=== PATIENT | female | born 1975 | race Caucasian/White ===

== ENCOUNTER 2017-06-30 12:24 | Emergency (ER) | payer MEDICARE, MEDICAID ==
[~2017-06-30] VITALS: Ht 170.2 cm; Wt 74.1 kg
[2017-06-30 12:25] VITALS: BP 123/81
[2017-06-30] MEDS ORDERED: NOVO1INJ4 SC (12:43)
[2017-06-30] MEDS ORDERED: AMIT100TA PO (12:43)
[2017-06-30] MEDS ORDERED: NEXI40CA PO (12:43)
[2017-06-30] MEDS ORDERED: INSULANT SC (12:43)
[2017-06-30] MEDS ORDERED: PLAV1TAB2 PO (12:43)
[2017-06-30] MEDS ORDERED: KLON1TAB PO (12:43)
[2017-06-30] MEDS ORDERED: TOPR50TA PO (12:43)
[2017-06-30] MEDS ORDERED: SITA50TAB PO (12:43)
[2017-06-30] MEDS ORDERED: METF10004 PO (12:43)
[2017-06-30] MEDS ORDERED: ATIV1TAB7 PO (12:43)
[2017-06-30] MEDS ORDERED: SOMA350T PO (12:43)
[2017-06-30] MEDS ORDERED: LIPI20TA PO (12:52)
[2017-06-30 13:47] LABS: BASO # 0.1 K/mm3 (0.0-0.2); BASO % 1.2 % (0.0-1.0); EOS # 0.1 K/mm3 (0.0-0.50); EOS % 1.1 % (0.0-3.0); LARGE UNSTAINED CELL # 0.2 K/mm3 (0.0-0.4); LYMPH # 3.9 K/mm3 (1.5-4.5); LYMPH % 34.1 % (24.0-44.0); MEAN CORPUSCULAR HEMOGLOBIN 33.7 pg (27.0-33.0); MEAN CORPUSCULAR HGB CONC 36.3 g/dl (32.0-36.5); MEAN CORPUSCULAR VOLUME 92.8 fl (80.0-96.0); MONO # 0.3 K/mm3 (0.0-0.8); MONO % 2.8 % (0.0-5.0); NEUTROPHILS # 6.7 K/mm3 (1.8-7.7); NEUTROPHILS % 58.8 % (36.0-66.0); PLATELET COUNT, AUTOMATED 229 k/mm3 (150-450); RED CELL DISTRIBUTION WIDTH 11.7 % (11.5-14.5); WHITE BLOOD COUNT 11.5 K/mm3 (4.0-10.0)
[2017-06-30 13:53] LABS: INR 0.88
[2017-06-30] MEDS ORDERED: PROMETHAZINE INJ 25 MG/ML VIAL (J2550) IV ONE (14:00)
[2017-06-30] MEDS ORDERED: MORPHINE 4 MG/ML 1ML SYRINGE IV ONE (14:00)
[2017-06-30] MEDS ORDERED: NS 1,000 ML IV ONE (14:00)
[2017-06-30 14:46] LABS: ANION GAP 10 MEQ/L (8-16); BLOOD UREA NITROGEN 13 MG/DL (7-18); CARBON DIOXIDE LEVEL 27 MEQ/L (21-32); CHLORIDE LEVEL 100 MEQ/L (98-107); CREATININE FOR GFR 0.51 MG/DL (0.55-1.02); GLOMERULAR FILTRATION RATE > 60.0 (>58); GLUCOSE, FASTING 281 MG/DL (70-105); POTASSIUM SERUM 4.2 MEQ/L (3.5-5.1); SODIUM LEVEL 137 MEQ/L (136-145)
[2017-06-30] MEDS ORDERED: HYDROmorphone HCL 1 MG/ML SYRINGE (J1170) IV ONE (15:00)
--- NOTE | 2017-06-30 16:07 | REP ---
Clinical: Left lower extremity pain . Technique: Tucker scale and color Doppler evaluation using linear high frequency transducer. Findings: Ultrasound examination of the left lower extremity deep venous structures from the superficial femoral femoral vein to the popliteal vein demonstrates normal compressibility flow and wave patterns in response to respiration and augmentation. There is no evidence for deep venous thrombosis. No abnormal fluid collection or abscess identified. The common femoral vein and proximal portion of the examination was limited due to the patient's inability to tolerate pain. Impression: No evidence for deep venous thrombosis from the superficial femoral vein to the popliteal vein. No evidence for abnormal fluid collection or abscess. Signed by Frank Turner MD 06/30/2017 03:59 P
--- NOTE | 2017-06-30 16:27 | REP ---
Clinical: Left groin swelling. Technique: Real time sheffield scale and color evaluation ultrasound examination using linear high frequency transducer. Findings: Directed ultrasound examination underline area of maximal erythema and swelling demonstrates a a superficial subcutaneous collection measuring 5.3 x 0.7 x 1.0 cm with surrounding edema. Findings are nonspecific and the hematoma or small forming abscess cannot be excluded. Impression: Subcutaneous edema with small complex fluid collection. Differential diagnosis includes but is not limited to forming abscess and hematoma. Correlation with physical examination and history is recommended. Signed by Frank Turner MD 06/30/2017 04:19 P
--- NOTE | 2017-06-30 19:55 | ECGEPIP ---
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 Order Number: [id number] Reading MD: Abhijeet Hartman Measurements Intervals [place] Rate: 98 P: 57 IA: 141 QRS: -12 QRSD: 68 T: 30 QT: 328 QTc: 419 Interpretive Statements SINUS RHYTHM LOW QRS VOLTAGE LIMB LEADS NO OLD ECG FOR COMPARISON Electronically Signed On 06-30-2017 19:54:59 EDT by Abhijeet Hartman
--- NOTE | 2017-07-08 09:19 | REP ---
C t pulmonary angiogram: Repeat dictation. The study was cancelled because of patient's claustrophobia. Signed by Reyes Mena MD 07/08/2017 09:41 A
== END 2017-06-30 15:35 | disposition left against medical advice (07) ==
LOC: M ED 12:24
DX: M25.552 Pain in left hip (principal); Z53.21 Procedure and treatment not carried out due to patient leaving prior to being seen by health care provider; F17.210 Nicotine dependence, cigarettes, uncomplicated; I10 Essential (primary) hypertension; E11.9 Type 2 diabetes mellitus without complications; R16.0 Hepatomegaly, not elsewhere classified; F33.9 Major depressive disorder, recurrent, unspecified; F41.9 Anxiety disorder, unspecified; K21.9 Gastro-esophageal reflux disease without esophagitis; Z79.899 Other long term (current) drug therapy; Z79.84 Long term (current) use of oral hypoglycemic drugs; Z87.442 Personal history of urinary calculi; Z79.4 Long term (current) use of insulin; Z86.73 Personal history of transient ischemic attack (TIA), and cerebral infarction without residual deficits; I25.2 Old myocardial infarction
CPT/HCPCS: 71275; 76857; 80048; 82550; 82553; 84484; 85025; 85610; 85730; 93005; 93971; 96374; 96375; 99282; 99283; J1170

== ENCOUNTER 2017-06-30 18:20 | Emergency (ER) | payer MEDICARE, MEDICAID ==
[~2017-06-30] VITALS: Ht 167.6 cm; Wt 74.1 kg
[~2017-06-30 18:20] MED LIST: AMIT100TA PO; ATIV1TAB7 PO; INSULANT SC; KLON1TAB PO; LIPI20TA PO; METF10004 PO; NEXI40CA PO; NOVO1INJ4 SC; PLAV1TAB2 PO; SITA50TAB PO; SOMA350T PO; TOPR50TA PO
[2017-06-30 18:38] VITALS: BP 99/84
[2017-06-30] MEDS ORDERED: LORazepam 2 MG/ML VIAL (J2060) IV STA (19:14)
[2017-06-30] MEDS ORDERED: ISOVUE-370 76% 100ML VIAL (Q9967) As Ordered ONE (19:31)
[2017-06-30] MEDS ORDERED: METOCLOPRAMIDE INJ 10MG/2ML VIAL (J2765) IV ONE (19:45)
[2017-06-30] MEDS ORDERED: MORPHINE 2 MG/ML 1ML SYRINGE IV ONE (19:45)
== END 2017-06-30 20:13 | disposition left against medical advice (07) ==
LOC: M ED 18:20
DX: M79.605 Pain in left leg (principal); E11.9 Type 2 diabetes mellitus without complications; I10 Essential (primary) hypertension; K21.9 Gastro-esophageal reflux disease without esophagitis; F17.200 Nicotine dependence, unspecified, uncomplicated; Z86.718 Personal history of other venous thrombosis and embolism; Z90.79 Acquired absence of other genital organ(s); Z90.49 Acquired absence of other specified parts of digestive tract; Z90.89 Acquired absence of other organs; Z79.4 Long term (current) use of insulin; Z79.899 Other long term (current) drug therapy

== ENCOUNTER 2017-07-04 00:24 | Emergency (ER) | payer MEDICARE, MEDICAID ==
[2017-07-04 01:36] LABS: VENOUS BASE EXCESS -0.2 (-2.0-2.0); VENOUS O2 SATURATION 86.5 % (60.0-80.0); VENOUS PARTIAL PRESSURE O2 47.4 mmHg (30.0-50.0); VENOUS TOTAL CO2 26.6 MEQ/L (24.0-28.0)
[2017-07-04 01:39] LABS: BASO # 0.1 K/mm3 (0.0-0.2); BASO % 0.8 % (0.0-1.0); EOS # 0.1 K/mm3 (0.0-0.50); EOS % 1.3 % (0.0-3.0); INR 0.87; LARGE UNSTAINED CELL # 0.3 K/mm3 (0.0-0.4); LARGE UNSTAINED CELL % 2.6 % (0.0-4.0); LYMPH # 4.9 K/mm3 (1.5-4.5); LYMPH % 44.2 % (24.0-44.0); MEAN CORPUSCULAR HEMOGLOBIN 32.8 pg (27.0-33.0); MEAN CORPUSCULAR HGB CONC 34.5 g/dl (32.0-36.5); MONO # 0.4 K/mm3 (0.0-0.8); MONO % 3.9 % (0.0-5.0); NEUTROPHILS # 4.9 K/mm3 (1.8-7.7); NEUTROPHILS % 47.2 % (36.0-66.0); PLATELET COUNT, AUTOMATED 188 k/mm3 (150-450); RED CELL DISTRIBUTION WIDTH 12.2 % (11.5-14.5); WHITE BLOOD COUNT 10.4 K/mm3 (4.0-10.0)
[2017-07-04] MEDS ORDERED: ONDANSETRON 4MG/2ML VIAL (J2405) IV ONE (01:45)
[2017-07-04] MEDS ORDERED: NITROGLYCERIN 0.4 MG SUBL TABLET SL PRN (01:45)
[2017-07-04] MEDS ORDERED: NS 1,000 ML IV ONE (01:45)
[2017-07-04 01:46] VITALS: BP 121/76
[2017-07-04 02:08] LABS: ALBUMIN 3.6 GM/DL (3.2-5.2); ALKALINE PHOSPHATASE 133 U/L (45-117); ALT/SGPT 28 U/L (12-78); ANION GAP 8 MEQ/L (8-16); AST/SGOT 12 U/L (15-37); BILIRUBIN,DIRECT < 0.1 MG/DL (0.0-0.2); BILIRUBIN,TOTAL 0.2 MG/DL (0.2-1.0); BLOOD UREA NITROGEN 5 MG/DL (7-18); CALCIUM LEVEL 9.1 MG/DL (8.5-10.1); CARBON DIOXIDE LEVEL 26 MEQ/L (21-32); CHLORIDE LEVEL 102 MEQ/L (98-107); CREATININE FOR GFR 0.47 MG/DL (0.55-1.02); GLOMERULAR FILTRATION RATE > 60.0 (>58); GLUCOSE, FASTING 287 MG/DL (70-105); POTASSIUM SERUM 4.1 MEQ/L (3.5-5.1); SODIUM LEVEL 136 MEQ/L (136-145); TOTAL PROTEIN 7.2 GM/DL (6.4-8.2)
--- NOTE | 2017-07-04 07:58 | REP ---
Clinical: Chest pain . Comparison: None . Technique: PA and lateral. Findings: The mediastinum and cardiac silhouette are normal. The lung fountain are clear and without acute consolidation, effusion, or pneumothorax. The skeletal structures are intact and normal. Impression: 1. No acute cardiopulmonary process. Signed by Frank Turner MD 07/04/2017 07:49 A
--- NOTE | 2017-07-04 18:26 | ECGEPIP ---
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
== END 2017-07-04 02:05 | disposition left against medical advice (07) ==
LOC: M ED 00:24
DX: Z76.5 Malingerer [conscious simulation] (principal); E11.9 Type 2 diabetes mellitus without complications; Z91.19 Patient's noncompliance with other medical treatment and regimen; I25.10 Atherosclerotic heart disease of native coronary artery without angina pectoris; I25.2 Old myocardial infarction; F17.210 Nicotine dependence, cigarettes, uncomplicated; Z79.899 Other long term (current) drug therapy; Z79.02 Long term (current) use of antithrombotics/antiplatelets; Z79.4 Long term (current) use of insulin

== ENCOUNTER 2017-07-08 02:11 | Emergency (ER) | payer MEDICARE, MEDICAID ==
[~2017-07-08] VITALS: Ht 170.2 cm; Wt 74.0 kg
[2017-07-08 02:20] VITALS: BP 153/103
[2017-07-08 04:02] LABS: BASO % 0.6 % (0.0-1.0); EOS # 0.1 K/mm3 (0.0-0.50); LARGE UNSTAINED CELL # 0.2 K/mm3 (0.0-0.4); LARGE UNSTAINED CELL % 2.3 % (0.0-4.0); LYMPH # 3.6 K/mm3 (1.5-4.5); LYMPH % 41.7 % (24.0-44.0); MEAN CORPUSCULAR HEMOGLOBIN 32.9 pg (27.0-33.0); MONO # 0.3 K/mm3 (0.0-0.8); MONO % 3.7 % (0.0-5.0); NEUTROPHILS # 4.4 K/mm3 (1.8-7.7); NEUTROPHILS % 50.8 % (36.0-66.0); PLATELET COUNT, AUTOMATED 208 k/mm3 (150-450); WHITE BLOOD COUNT 8.6 K/mm3 (4.0-10.0)
[2017-07-08] MEDS ORDERED: METOCLOPRAMIDE 10 MG TAB PO ONE (04:30)
[2017-07-08 05:21] LABS: ANION GAP 6 MEQ/L (8-16); BLOOD UREA NITROGEN 8 MG/DL (7-18); CALCIUM LEVEL 9.6 MG/DL (8.5-10.1); CARBON DIOXIDE LEVEL 30 MEQ/L (21-32); CHLORIDE LEVEL 98 MEQ/L (98-107); CREATININE FOR GFR 0.47 MG/DL (0.55-1.02); GLOMERULAR FILTRATION RATE > 60.0 (>58); GLUCOSE, FASTING 304 MG/DL (70-105); SODIUM LEVEL 134 MEQ/L (136-145)
[2017-07-08 05:23] LABS: INR 0.92
[2017-07-08] MEDS ORDERED: HumuLIN R (REGULAR) INSULIN (NovoLIN R) **100U/ML** PER UNIT SC STA (05:27)
--- NOTE | 2017-07-08 19:30 | ECGEPIP ---
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
== END 2017-07-08 06:18 | disposition left against medical advice (07) ==
LOC: EDBD 02:11 → M ED 02:11
DX: Z76.5 Malingerer [conscious simulation] (principal); Z91.14 Patient's other noncompliance with medication regimen; Z91.19 Patient's noncompliance with other medical treatment and regimen; R73.9 Hyperglycemia, unspecified; E10.9 Type 1 diabetes mellitus without complications; I10 Essential (primary) hypertension; I25.10 Atherosclerotic heart disease of native coronary artery without angina pectoris; F33.9 Major depressive disorder, recurrent, unspecified; F41.9 Anxiety disorder, unspecified; G89.29 Other chronic pain; M54.9 Dorsalgia, unspecified; F17.210 Nicotine dependence, cigarettes, uncomplicated; Z79.899 Other long term (current) drug therapy; Z79.84 Long term (current) use of oral hypoglycemic drugs; Z79.4 Long term (current) use of insulin; Z88.8 Allergy status to other drugs, medicaments and biological substances; Z88.1 Allergy status to other antibiotic agents; Z88.5 Allergy status to narcotic agent; Z88.0 Allergy status to penicillin; Z88.2 Allergy status to sulfonamides; I25.2 Old myocardial infarction; Z86.73 Personal history of transient ischemic attack (TIA), and cerebral infarction without residual deficits

== ENCOUNTER 2017-07-08 16:33 | Emergency (ER) | payer MEDICARE, MEDICAID ==
[~2017-07-08] VITALS: Ht 170.2 cm; Wt 74.1 kg
[2017-07-08 16:33] VITALS: BP 127/84
--- NOTE | 2017-07-08 19:47 | ECGEPIP ---
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
[2017-07-08] MEDS ORDERED: ONDANSETRON 4 MG ORAL DISINTEGRATING TAB (S0181) PO ONE (20:00)
== END 2017-07-08 20:41 | disposition left against medical advice (07) ==
LOC: M ED 16:33
DX: Z76.5 Malingerer [conscious simulation] (principal); E10.9 Type 1 diabetes mellitus without complications; I25.10 Atherosclerotic heart disease of native coronary artery without angina pectoris; F33.9 Major depressive disorder, recurrent, unspecified; F41.9 Anxiety disorder, unspecified; F17.210 Nicotine dependence, cigarettes, uncomplicated; I25.2 Old myocardial infarction; Z86.73 Personal history of transient ischemic attack (TIA), and cerebral infarction without residual deficits; Z79.4 Long term (current) use of insulin; Z79.899 Other long term (current) drug therapy; Z79.84 Long term (current) use of oral hypoglycemic drugs; Z88.8 Allergy status to other drugs, medicaments and biological substances; Z88.1 Allergy status to other antibiotic agents; Z88.5 Allergy status to narcotic agent; Z88.0 Allergy status to penicillin; Z88.2 Allergy status to sulfonamides

== ENCOUNTER 2017-08-13 11:43 | Emergency (ER) | payer MEDICARE, MEDICAID ==
[~2017-08-13] VITALS: Ht 170.2 cm; Wt 74.1 kg
[2017-08-13] MEDS ORDERED: TYLE500T78 PO (11:57)
[2017-08-13] MEDS ORDERED: ONDANSETRON 4MG/2ML VIAL (J2405) IV ONE (12:15)
[2017-08-13] MEDS ORDERED: NS 1,000 ML IV ONE (12:30)
[2017-08-13 12:43] LABS: MEAN CORPUSCULAR HEMOGLOBIN 32.1 pg (27.0-33.0); MEAN CORPUSCULAR HGB CONC 34.8 g/dl (32.0-36.5); MEAN CORPUSCULAR VOLUME 92.2 fl (80.0-96.0); PLATELET COUNT, AUTOMATED 198 10^3/uL (150-450); RED CELL DISTRIBUTION WIDTH 11.8 % (11.5-14.5); WHITE BLOOD COUNT 13.7 10^3/uL (4.0-10.0)
[2017-08-13 13:03] LABS: ADD MANUAL DIFFER YES; ADD MORPHOLOGY? YES; DIFF SLIDE NUMBER 259; POSITIVE DIFF POS FLAG; POSITIVE MORPH POS FLAG
[2017-08-13 13:03] LABS: METHADONE URINE NEGATIVE (NEGATIVE)
[2017-08-13 13:07] LABS: INR 1.01
[2017-08-13 13:09] LABS: CONTROL LINE HCG INT CTR LINE PRESENT
[2017-08-13 13:11] LABS: OSMOLALITY SERUM 290 MOSM/KG (275-295)
[2017-08-13 13:33] LABS: ALBUMIN 3.7 GM/DL (3.2-5.2); ALKALINE PHOSPHATASE 128 U/L (45-117); ALT/SGPT 28 U/L (12-78); ANION GAP 10 MEQ/L (8-16); AST/SGOT 17 U/L (15-37); BILIRUBIN,DIRECT 0.1 MG/DL (0.0-0.2); BILIRUBIN,TOTAL 0.4 MG/DL (0.2-1.0); BLOOD UREA NITROGEN 6 MG/DL (7-18); CALCIUM LEVEL 8.8 MG/DL (8.5-10.1); CARBON DIOXIDE LEVEL 26 MEQ/L (21-32); CHLORIDE LEVEL 100 MEQ/L (98-107); CREATININE FOR GFR 0.49 MG/DL (0.55-1.02); GLOMERULAR FILTRATION RATE > 60.0 (>58); GLUCOSE, FASTING 213 MG/DL (70-105); SODIUM LEVEL 136 MEQ/L (136-145); TOTAL PROTEIN 7.4 GM/DL (6.4-8.2)
[2017-08-13] MEDS ORDERED: MORPHINE 2 MG/ML 1ML SYRINGE As Ordered ONE (13:42)
[2017-08-13] MEDS ORDERED: MORPHINE 2 MG/ML 1ML SYRINGE IV ONE (13:45)
--- NOTE | 2017-08-13 13:45 | REP ---
RIGHT SHOULDER: Three views of the right shoulder are performed. I see no acute fracture or dislocation. A rounded calcification along the superolateral humeral head may represent a tendinous or bursal calcification measuring 8 mm in diameter. Signed by Ellis Tucker MD 08/13/2017 08:00 P
[2017-08-13 13:53] VITALS: BP 116/63
[2017-08-13] MEDS ORDERED: ZOFR20TA PO (14:25)
[2017-08-13] MEDS ORDERED: OXYC-517 PO (14:25)
--- NOTE | 2017-08-14 08:16 | ECGEPIP ---
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
== END 2017-08-13 14:34 | disposition home or self-care (01) ==
LOC: M ED 11:43
DX: M25.511 Pain in right shoulder (principal); R11.10 Vomiting, unspecified; E11.9 Type 2 diabetes mellitus without complications; F17.210 Nicotine dependence, cigarettes, uncomplicated; Z86.73 Personal history of transient ischemic attack (TIA), and cerebral infarction without residual deficits; Z86.718 Personal history of other venous thrombosis and embolism; Z86.14 Personal history of Methicillin resistant Staphylococcus aureus infection; Z88.0 Allergy status to penicillin; Z88.1 Allergy status to other antibiotic agents; Z88.2 Allergy status to sulfonamides; Z88.5 Allergy status to narcotic agent; Z88.6 Allergy status to analgesic agent; Z88.8 Allergy status to other drugs, medicaments and biological substances; Z79.4 Long term (current) use of insulin; Z79.84 Long term (current) use of oral hypoglycemic drugs; Z79.899 Other long term (current) drug therapy
CPT/HCPCS: 36415; 73030; 80048; 80076; 80307; 81001; 82550; 83605; 83930; 84443; 84703; 85025; 85610; 85730; 93005; 93041; 94760; 96361; 96374; 96375; 99285; G0480; J2405

== ENCOUNTER 2017-08-15 14:12 | Emergency (ER) | payer MEDICARE, MEDICAID ==
[~2017-08-15] VITALS: Ht 170.2 cm; Wt 74.1 kg
[2017-08-15 14:12] VITALS: BP 97/78
[~2017-08-15 14:12] MED LIST changes: +OXYC-517 PO; +TYLE500T78 PO; +ZOFR20TA PO
== END 2017-08-15 16:31 | disposition left against medical advice (07) ==
LOC: M ED 14:12
DX: M25.511 Pain in right shoulder (principal); G89.29 Other chronic pain; T39.1X2A Poisoning by 4-Aminophenol derivatives, intentional self-harm, initial encounter; E11.9 Type 2 diabetes mellitus without complications; I25.10 Atherosclerotic heart disease of native coronary artery without angina pectoris; I25.2 Old myocardial infarction; F17.210 Nicotine dependence, cigarettes, uncomplicated; Z79.01 Long term (current) use of anticoagulants; Z88.8 Allergy status to other drugs, medicaments and biological substances; Z88.1 Allergy status to other antibiotic agents; Z88.5 Allergy status to narcotic agent; Z88.2 Allergy status to sulfonamides; Z86.73 Personal history of transient ischemic attack (TIA), and cerebral infarction without residual deficits

== ENCOUNTER 2017-08-23 15:45 | Emergency (ER) | payer MEDICARE, MEDICAID ==
[~2017-08-23] VITALS: Ht 170.2 cm; Wt 74.1 kg
[2017-08-23 16:00] VITALS: BP 144/101
[2017-08-23] MEDS ORDERED: MORPHINE 2 MG/ML 1ML SYRINGE IV ONE (17:45)
[2017-08-23] MEDS ORDERED: ONDANSETRON 4MG/2ML VIAL (J2405) IV ONE (17:45)
[2017-08-23 18:36] LABS: MEAN CORPUSCULAR HEMOGLOBIN 32.1 pg (27.0-33.0); MEAN CORPUSCULAR VOLUME 91.8 fl (80.0-96.0); PLATELET COUNT, AUTOMATED 162 10^3/uL (150-450); RED CELL DISTRIBUTION WIDTH 11.9 % (11.5-14.5)
[2017-08-23 18:39] LABS: PLT CLUMPS? POS FLAG; POS COUNT POS FLAG; POSITIVE DIFF POS FLAG; POSITIVE MORPH POS FLAG; WHITE BLOOD COUNT 11.7 10^3/uL (4.0-10.0)
[2017-08-23 18:40] LABS: ADD MANUAL DIFFER YES; DIFF SLIDE NUMBER 284
[2017-08-23 18:56] LABS: BASOPHILS 1 % (0-4)
[2017-08-23 18:59] LABS: ALBUMIN 3.7 GM/DL (3.2-5.2); ALBUMIN/GLOBULIN RATIO 1.09 (1.00-1.93); ALKALINE PHOSPHATASE 125 U/L (45-117); ALT/SGPT 26 U/L (12-78); AMYLASE 40 U/L (25-115); ANION GAP 6 MEQ/L (8-16); AST/SGOT 11 U/L (7-37); BILIRUBIN,DIRECT < 0.1 MG/DL (0.0-0.2); BILIRUBIN,TOTAL 0.3 MG/DL (0.2-1.0); BLOOD UREA NITROGEN 8 MG/DL (7-18); CALCIUM LEVEL 8.9 MG/DL (8.5-10.1); CARBON DIOXIDE LEVEL 28 MEQ/L (21-32); CHLORIDE LEVEL 100 MEQ/L (98-107); CREATININE FOR GFR 0.53 MG/DL (0.55-1.02); GLOMERULAR FILTRATION RATE > 60.0 (>58); GLUCOSE, FASTING 277 MG/DL (70-105); POTASSIUM SERUM 4.4 MEQ/L (3.5-5.1); SODIUM LEVEL 134 MEQ/L (136-145); TOTAL PROTEIN 7.1 GM/DL (6.4-8.2)
--- NOTE | 2017-08-23 19:14 | REP ---
Chest x-ray: Two views. History: Shortness of breath. Comparison chest x-ray July 04, 2017. Findings: There is a granuloma in the left lower lobe again noted unchanged. Lung fountain are otherwise well inflated and clear. Heart is not enlarged. Pulmonary vasculature is not increased. Pleural angles are sharp. There is dystrophic calcification in the periarticular soft tissues adjacent to the humeral head on the right at the right shoulder. Calcific tendonitis changes. Impression: 1. Left lower lobe granuloma. No active cardiopulmonary disease. 2. Periarticular soft-tissue calcification at the right shoulder consistent with calcific tendonitis or bursitis. Signed by Reyes Mena MD 08/23/2017 07:20 P
--- NOTE | 2017-08-23 19:38 | ECGEPIP ---
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
== END 2017-08-23 19:30 | disposition left against medical advice (07) ==
LOC: M ED 15:45
DX: L02.412 Cutaneous abscess of left axilla (principal); R31.9 Hematuria, unspecified; I25.10 Atherosclerotic heart disease of native coronary artery without angina pectoris; E11.9 Type 2 diabetes mellitus without complications; J45.909 Unspecified asthma, uncomplicated; I10 Essential (primary) hypertension; R56.9 Unspecified convulsions; E78.5 Hyperlipidemia, unspecified; M54.9 Dorsalgia, unspecified; G89.29 Other chronic pain; F41.9 Anxiety disorder, unspecified; F33.9 Major depressive disorder, recurrent, unspecified; R16.0 Hepatomegaly, not elsewhere classified; E66.9 Obesity, unspecified; F17.210 Nicotine dependence, cigarettes, uncomplicated; Z79.01 Long term (current) use of anticoagulants; Z79.2 Long term (current) use of antibiotics; Z79.84 Long term (current) use of oral hypoglycemic drugs; Z79.899 Other long term (current) drug therapy; Z88.8 Allergy status to other drugs, medicaments and biological substances; Z88.1 Allergy status to other antibiotic agents; Z88.0 Allergy status to penicillin; Z88.2 Allergy status to sulfonamides; Z86.73 Personal history of transient ischemic attack (TIA), and cerebral infarction without residual deficits; Z86.711 Personal history of pulmonary embolism; Z87.42 Personal history of other diseases of the female genital tract; Z87.442 Personal history of urinary calculi
CPT/HCPCS: 71020; 80048; 80076; 81001; 82150; 82550; 82553; 83605; 84484; 85025; 86140; 87040; 87088; 87186; 93005; 96374; 96375; 99284; J2405

== ENCOUNTER → 2017-10-07 | Outpatient (REF) | payer MEDICARE, MEDICAID | LOC: M SFHCADAM 20:24 | PROVIDERS: ATTEND Family Medicine | DX: E11.9 Type 2 diabetes mellitus without complications (principal) ==

== ENCOUNTER → 2017-10-31 | Outpatient (REF) | payer MEDICARE, MEDICAID ==
[2017-10-31 19:51] LABS: CREATININE FOR GFR 0.52 MG/DL (0.55-1.02); GLOMERULAR FILTRATION RATE > 60.0 (>58)
[2017-10-31 19:51] LABS: BLOOD UREA NITROGEN 13 MG/DL (7-18)
== END ==
LOC: M LAB REF 18:47 → M LABDRWAD 18:48
DX: I73.9 Peripheral vascular disease, unspecified (principal)
CPT/HCPCS: 82565

== ENCOUNTER 2017-12-08 12:57 | Emergency (ER) | payer MEDICARE, MEDICAID ==
[2017-12-08] MEDS: ONDANSETRON 4 MG TAB (S0181) PO (14:58)
[2017-12-08 15:01] LABS: BASO # 0.1 10^3/uL (0.0-0.2); BASO % 0.6 % (0.0-1.0); EOS # 0.1 10^3/uL (0.0-0.50); EOS % 1.1 % (0.0-3.0); HEMATOCRIT 40.6 % (36.0-47.0); IMMATURE GRANULOCYTE % 0.2 % (0-3.0); LYMPH # 3.7 10^3/uL (1.5-4.5); LYMPH % 38.2 % (24.0-44.0); MEAN CORPUSCULAR HGB CONC 34.5 g/dl (32.0-36.5); MEAN CORPUSCULAR VOLUME 92.9 fl (80.0-96.0); MONO # 0.5 10^3/uL (0.0-0.8); MONO % 4.8 % (0.0-5.0); NEUTROPHILS # 5.4 10^3/uL (1.8-7.7); NEUTROPHILS % 55.1 % (36.0-66.0); PLATELET COUNT, AUTOMATED 214 10^3/uL (150-450); RED BLOOD COUNT 4.37 10^6/uL (4.00-5.40); RED CELL DISTRIBUTION WIDTH 12.3 % (11.5-14.5); WHITE BLOOD COUNT 9.7 10^3/uL (4.0-10.0)
[2017-12-08 15:31] LABS: INFLUENZA A AMPLIFICATION NEGATIVE (NEGATIVE); INFLUENZA B AMPLIFICATION NEGATIVE (NEGATIVE); RSV AMPLIFICATION POSITIVE (NEGATIVE)
[2017-12-08 15:33] LABS: ALBUMIN 3.7 GM/DL (3.2-5.2); ALKALINE PHOSPHATASE 109 U/L (45-117); ALT/SGPT 20 U/L (12-78); ANION GAP 7 MEQ/L (8-16); AST/SGOT 11 U/L (7-37); BILIRUBIN,TOTAL 0.3 MG/DL (0.2-1.0); BLOOD UREA NITROGEN 11 MG/DL (7-18); CALCIUM LEVEL 8.4 MG/DL (8.5-10.1); CARBON DIOXIDE LEVEL 28 MEQ/L (21-32); CHLORIDE LEVEL 102 MEQ/L (98-107); CREATININE FOR GFR 0.47 MG/DL (0.55-1.30); GLOMERULAR FILTRATION RATE > 60.0 (>58); GLUCOSE, FASTING 269 MG/DL (70-100); POTASSIUM SERUM 4.3 MEQ/L (3.5-5.1); SODIUM LEVEL 137 MEQ/L (136-145); TOTAL PROTEIN 7.4 GM/DL (6.4-8.2)
[2017-12-08] MEDS: IPRATROPIUM 0.5MG/ALBUTEROL 2.5MG INH SOL UD 3ML (DUONEB)(J7620) NEB (15:38)
[2017-12-08] MEDS ORDERED: ISOVUE-370 76% 100ML VIAL (Q9967) As Ordered (15:42)
[2017-12-08] MEDS: MORPHINE 4 MG/ML 1ML VIAL (J2270) IV (15:44)
[2017-12-08] MEDS: METOCLOPRAMIDE INJ 10MG/2ML VIAL (J2765) IV (15:44)
[2017-12-08] MEDS: NS 1,000 ML IV (16:00)
[2017-12-08 16:22] LABS: LIPASE 163 U/L (73-393)
[2017-12-08 16:40] LABS: TROPONIN I < 0.02 NG/ML (< 0.10)
[2017-12-08] MEDS: ACETAMINOPH W/CODEINE #3 TAB UD PO (17:28)
== END 2017-12-08 17:29 | disposition home or self-care (01) ==
LOC: M ED 12:57
DX: J20.5 Acute bronchitis due to respiratory syncytial virus (principal); I10 Essential (primary) hypertension; J45.909 Unspecified asthma, uncomplicated; E11.9 Type 2 diabetes mellitus without complications; E78.00 Pure hypercholesterolemia, unspecified; R16.0 Hepatomegaly, not elsewhere classified; F41.9 Anxiety disorder, unspecified; F33.9 Major depressive disorder, recurrent, unspecified; I25.2 Old myocardial infarction; F17.210 Nicotine dependence, cigarettes, uncomplicated; Z79.01 Long term (current) use of anticoagulants; Z79.4 Long term (current) use of insulin; Z79.899 Other long term (current) drug therapy; Z88.8 Allergy status to other drugs, medicaments and biological substances; Z88.1 Allergy status to other antibiotic agents; Z88.5 Allergy status to narcotic agent; Z88.0 Allergy status to penicillin; Z88.2 Allergy status to sulfonamides; Z98.890 Other specified postprocedural states; Z86.69 Personal history of other diseases of the nervous system and sense organs; Z86.73 Personal history of transient ischemic attack (TIA), and cerebral infarction without residual deficits; Z86.711 Personal history of pulmonary embolism; Z87.19 Personal history of other diseases of the digestive system; Z87.42 Personal history of other diseases of the female genital tract; Z87.39 Personal history of other diseases of the musculoskeletal system and connective tissue
CPT/HCPCS: J2270

== ENCOUNTER 2017-12-28 12:06 | Emergency (ER) | payer MEDICARE, MEDICAID ==
[2017-12-28 13:43] LABS: HEMATOCRIT 41.4 % (36.0-47.0); HEMOGLOBIN 14.5 g/dl (12.0-16.0); MEAN CORPUSCULAR HEMOGLOBIN 32.5 pg (27.0-33.0); MEAN CORPUSCULAR VOLUME 92.8 fl (80.0-96.0); PLATELET COUNT, AUTOMATED 201 10^3/uL (150-450); RED BLOOD COUNT 4.46 10^6/uL (4.00-5.40); RED CELL DISTRIBUTION WIDTH 12.1 % (11.5-14.5); WHITE BLOOD COUNT 10.6 10^3/uL (4.0-10.0)
[2017-12-28 14:05] LABS: ALBUMIN 4.1 GM/DL (3.2-5.2); ALBUMIN/GLOBULIN RATIO 1.24 (1.00-1.93); ALKALINE PHOSPHATASE 98 U/L (45-117); ALT/SGPT 21 U/L (12-78); ANION GAP 6 MEQ/L (8-16); AST/SGOT 10 U/L (7-37); BILIRUBIN,DIRECT < 0.1 MG/DL (0.0-0.2); BILIRUBIN,TOTAL 0.2 MG/DL (0.2-1.0); BLOOD UREA NITROGEN 12 MG/DL (7-18); CALCIUM LEVEL 8.9 MG/DL (8.5-10.1); CARBON DIOXIDE LEVEL 27 MEQ/L (21-32); CHLORIDE LEVEL 105 MEQ/L (98-107); CREATININE FOR GFR 0.47 MG/DL (0.55-1.30); GLOMERULAR FILTRATION RATE > 60.0 (>58); GLUCOSE, FASTING 207 MG/DL (70-100); POTASSIUM SERUM 4.4 MEQ/L (3.5-5.1); SALICYLATE LEVEL 5.2 MG/DL (5.0-30.0); SODIUM LEVEL 138 MEQ/L (136-145); THYROID STIMULATING HORMONE 0.456 uIU/ML (0.358-3.740); TOTAL PROTEIN 7.4 GM/DL (6.4-8.2)
[2017-12-28 14:12] LABS: ETHYL ALCOHOL (ETHANOL) < 0.003 % (0.000-0.010)
[2017-12-28 14:13] LABS: ACETAMINOPHEN LEVEL < 2.0 UG/ML (10.0-30.0)
== END 2017-12-28 15:21 | disposition home or self-care (01) ==
LOC: M ED 12:06
DX: F33.9 Major depressive disorder, recurrent, unspecified (principal); F43.20 Adjustment disorder, unspecified; J45.909 Unspecified asthma, uncomplicated; I25.10 Atherosclerotic heart disease of native coronary artery without angina pectoris; R56.9 Unspecified convulsions; K50.90 Crohn's disease, unspecified, without complications; I25.2 Old myocardial infarction; Z86.711 Personal history of pulmonary embolism; Z86.73 Personal history of transient ischemic attack (TIA), and cerebral infarction without residual deficits; Z87.442 Personal history of urinary calculi; F17.210 Nicotine dependence, cigarettes, uncomplicated
CPT/HCPCS: 73120

== ENCOUNTER 2018-01-12 17:10 | Emergency (ER) | payer MEDICARE, MEDICAID ==
[2018-01-12 18:24] LABS: APPEARANCE, URINE HAZY (CLEAR); BACTERIA, URINE AUTO 1+ (NEGATIVE); BILIRUBIN, URINE AUTO NEGATIVE (NEGATIVE); BLOOD, URINE BLOOD 3+ (NEGATIVE); COLOR, URINE YELLOW (YELLOW); GLUCOSE, URINE (UA) AUTO 3+ mg/dL (NEGATIVE); KETONE, URINE AUTO NEGATIVE (NEGATIVE); LEUKOCYTE ESTERASE, URINE AUTO NEGATIVE (NEGATIVE); NITRITE, URINE AUTO POSITIVE (NEGATIVE); PROTEIN, URINE AUTO NEGATIVE (NEGATIVE); RBC, URINE AUTO 160 /HPF (0-3); SPECIFIC GRAVITY URINE AUTO 1.013 (1.002-1.035); SQUAMOUS EPITHELIAL CELL UR AU 4 /HPF (0-6); UROBILINOGEN, URINE AUTO 0.2 mg/dL (0.0-2.0); WBC, URINE AUTO 57 /HPF (0-3)
[2018-01-12 18:53] LABS: HEMATOCRIT 40.9 % (36.0-47.0); HEMOGLOBIN 14.2 g/dl (12.0-16.0); MEAN CORPUSCULAR HEMOGLOBIN 32.2 pg (27.0-33.0); MEAN CORPUSCULAR HGB CONC 34.7 g/dl (32.0-36.5); MEAN CORPUSCULAR VOLUME 92.7 fl (80.0-96.0); PLATELET COUNT, AUTOMATED 215 10^3/uL (150-450); RED BLOOD COUNT 4.41 10^6/uL (4.00-5.40); WHITE BLOOD COUNT 12.2 10^3/uL (4.0-10.0)
[2018-01-12 18:54] LABS: ADD MANUAL DIFFER YES; DIFF SLIDE NUMBER 154; POSITIVE DIFF POS FLAG; POSITIVE MORPH POS FLAG
[2018-01-12] MEDS: MECLIZINE 25 MG TABLET PO (19:08)
[2018-01-12] MEDS: MORPHINE 4 MG/ML 1ML VIAL (J2270) IV ×2 (19:08→20:00)
[2018-01-12] MEDS: ONDANSETRON 4MG/2ML VIAL (J2405) IV ×2 (19:09→21:59)
[2018-01-12] MEDS: NS 1,000 ML IV (19:09)
[2018-01-12 19:18] LABS: ALBUMIN 3.9 GM/DL (3.2-5.2); ALBUMIN/GLOBULIN RATIO 1.03 (1.00-1.93); ALKALINE PHOSPHATASE 125 U/L (45-117); ALT/SGPT 24 U/L (12-78); ANION GAP 10 MEQ/L (8-16); AST/SGOT 12 U/L (7-37); ATYPICAL LYMPH 3 % (0-5); BILIRUBIN,TOTAL 0.3 MG/DL (0.2-1.0); BLOOD UREA NITROGEN 8 MG/DL (7-18); CALCIUM LEVEL 8.9 MG/DL (8.5-10.1); CARBON DIOXIDE LEVEL 25 MEQ/L (21-32); CHLORIDE LEVEL 102 MEQ/L (98-107); EOSINOPHILS 1 % (0-5); GLOMERULAR FILTRATION RATE > 60.0 (>58); GLUCOSE, FASTING 212 MG/DL (70-100); LIPASE 125 U/L (73-393); LYMPHOCYTES 35 % (16-52); MONOCYTES 2 % (0-8); NEUTROPHILS 59 % (35-75); PLATELET ESTIMATE NORMAL (NORMAL); POTASSIUM SERUM 4.2 MEQ/L (3.5-5.1); SODIUM LEVEL 137 MEQ/L (136-145); TOTAL PROTEIN 7.7 GM/DL (6.4-8.2)
[2018-01-12] MEDS: diazePAM 5 MG TAB PO (19:40)
[2018-01-12] MEDS: METHOCARBAMOL 500 MG TAB PO (21:59)
[2018-01-12] MEDS: NORCO 5/325MG TABLET (BULK FOR ED) PO (21:59)
== END 2018-01-12 22:01 | disposition home or self-care (01) ==
LOC: M ED 17:10
DX: S29.9XXA Unspecified injury of thorax, initial encounter (principal); W22.8XXA Striking against or struck by other objects, initial encounter; Y92.003 Bedroom of unspecified non-institutional (private) residence as the place of occurrence of the external cause; R11.2 Nausea with vomiting, unspecified; R19.7 Diarrhea, unspecified; M54.9 Dorsalgia, unspecified; G89.29 Other chronic pain; M79.641 Pain in right hand; I10 Essential (primary) hypertension; I25.2 Old myocardial infarction; F17.210 Nicotine dependence, cigarettes, uncomplicated; Z79.52 Long term (current) use of systemic steroids; Z79.01 Long term (current) use of anticoagulants; Z79.899 Other long term (current) drug therapy; Z79.4 Long term (current) use of insulin; Z88.8 Allergy status to other drugs, medicaments and biological substances; Z88.1 Allergy status to other antibiotic agents; Z88.5 Allergy status to narcotic agent; Z88.0 Allergy status to penicillin; Z88.2 Allergy status to sulfonamides; Z87.442 Personal history of urinary calculi; Z87.42 Personal history of other diseases of the female genital tract; Z86.711 Personal history of pulmonary embolism; Z87.01 Personal history of pneumonia (recurrent)
CPT/HCPCS: J2270

== ENCOUNTER → 2018-01-12 | Outpatient (CLI) | payer MEDICARE, MEDICAID | LOC: M ADAMS 16:07 | DX: M79.641 Pain in right hand (principal) ==

== ENCOUNTER 2018-01-20 15:23 | Emergency (ER) | payer MEDICARE, MEDICAID ==
[2018-01-20] MEDS: ONDANSETRON 4MG/2ML VIAL (J2405) IV ×2 (18:07→21:05)
[2018-01-20] MEDS: MORPHINE 4 MG/ML 1ML VIAL (J2270) IV ×2 (18:08→20:52)
[2018-01-20] MEDS: NS 1,000 ML IV (18:09)
[2018-01-20 18:27] LABS: HEMATOCRIT 42.8 % (36.0-47.0); HEMOGLOBIN 14.8 g/dl (12.0-16.0); MEAN CORPUSCULAR HEMOGLOBIN 32.5 pg (27.0-33.0); MEAN CORPUSCULAR HGB CONC 34.6 g/dl (32.0-36.5); MEAN CORPUSCULAR VOLUME 93.9 fl (80.0-96.0); PLATELET COUNT, AUTOMATED 220 10^3/uL (150-450); RED BLOOD COUNT 4.56 10^6/uL (4.00-5.40); RED CELL DISTRIBUTION WIDTH 11.9 % (11.5-14.5); WHITE BLOOD COUNT 13.7 10^3/uL (4.0-10.0)
[2018-01-20 18:28] LABS: ADD MANUAL DIFFER YES; DIFF SLIDE NUMBER 352; POSITIVE DIFF POS FLAG; POSITIVE MORPH POS FLAG
[2018-01-20 18:43] LABS: EOSINOPHILS 5 % (0-5); LYMPHOCYTES 40 % (16-52); MONOCYTES 5 % (0-8); NEUTROPHILS 50 % (35-75)
[2018-01-20 18:44] LABS: PLATELET ESTIMATE NORMAL (NORMAL)
[2018-01-20 18:45] LABS: ALBUMIN/GLOBULIN RATIO 0.98 (1.00-1.93); ALKALINE PHOSPHATASE 114 U/L (45-117); ALT/SGPT 29 U/L (12-78); ANION GAP 6 MEQ/L (8-16); AST/SGOT 15 U/L (7-37); BILIRUBIN,DIRECT < 0.1 MG/DL (0.0-0.2); BILIRUBIN,TOTAL 0.4 MG/DL (0.2-1.0); BLOOD UREA NITROGEN 7 MG/DL (7-18); CALCIUM LEVEL 8.6 MG/DL (8.5-10.1); CARBON DIOXIDE LEVEL 27 MEQ/L (21-32); CHLORIDE LEVEL 106 MEQ/L (98-107); GLOMERULAR FILTRATION RATE > 60.0 (>58); GLUCOSE, FASTING 184 MG/DL (70-100); LIPASE 133 U/L (73-393); POTASSIUM SERUM 3.9 MEQ/L (3.5-5.1); SODIUM LEVEL 139 MEQ/L (136-145); TOTAL PROTEIN 8.1 GM/DL (6.4-8.2)
[2018-01-20] MEDS: LORazepam 2 MG/ML VIAL (J2060) IV (20:23)
[2018-01-20] MEDS: METOCLOPRAMIDE INJ 10MG/2ML VIAL (J2765) IV (20:52)
[2018-01-20 21:08] LABS: KETONE, URINE AUTO RFX NEGATIVE (NEGATIVE); LEUKOCYTE ESTERASE UR AUTO RFX NEGATIVE (NEGATIVE); MUCUS, URINE RFX SMALL (NEGATIVE); RBC, URINE AUTO RFX TNTC /HPF (0-3); SPECIFIC GRAVITY UR AUTO RFX 1.014 (1.002-1.035); SQUAM EPITHELIAL CELL UR AURFX 3 /HPF (0-6); WBC, URINE AUTO RFX 2 /HPF (0-3)
[2018-01-20 21:17] LABS: NITRITE, URINE AUTO RFX POSITIVE (NEGATIVE)
== END 2018-01-20 21:21 | disposition left against medical advice (07) ==
LOC: M ED 15:23
DX: N30.01 Acute cystitis with hematuria (principal); Z91.81 History of falling; R10.31 Right lower quadrant pain; R10.11 Right upper quadrant pain; M25.511 Pain in right shoulder; I25.10 Atherosclerotic heart disease of native coronary artery without angina pectoris; I25.2 Old myocardial infarction; E11.9 Type 2 diabetes mellitus without complications; K50.90 Crohn's disease, unspecified, without complications; F17.210 Nicotine dependence, cigarettes, uncomplicated; Z88.6 Allergy status to analgesic agent; Z88.1 Allergy status to other antibiotic agents; Z88.8 Allergy status to other drugs, medicaments and biological substances; Z88.5 Allergy status to narcotic agent; Z88.0 Allergy status to penicillin; Z88.2 Allergy status to sulfonamides; Z79.899 Other long term (current) drug therapy; Z79.02 Long term (current) use of antithrombotics/antiplatelets; Z79.4 Long term (current) use of insulin
CPT/HCPCS: J2270

== ENCOUNTER → 2018-02-12 | Outpatient (REF) | payer MEDICARE, MEDICAID ==
[2018-02-12 20:15] LABS: BASO % 0.5 % (0.0-1.0); EOS # 0.1 10^3/uL (0.0-0.50); EOS % 0.8 % (0.0-3.0); HEMATOCRIT 46.6 % (36.0-47.0); HEMOGLOBIN 15.4 g/dl (12.0-15.5); IMMATURE GRANULOCYTE % 0.2 % (0-3.0); LYMPH # 2.8 10^3/uL (1.5-4.5); LYMPH % 31.4 % (24.0-44.0); MEAN CORPUSCULAR HEMOGLOBIN 31.6 pg (27.0-33.0); MEAN CORPUSCULAR VOLUME 95.5 fl (80.0-96.0); MONO # 0.4 10^3/uL (0.0-0.8); MONO % 4.8 % (0.0-5.0); NEUTROPHILS # 5.5 10^3/uL (1.8-7.7); NEUTROPHILS % 62.3 % (36.0-66.0); PLATELET COUNT, AUTOMATED 204 10^3/uL (150-450); RED BLOOD COUNT 4.88 10^6/uL (4.00-5.40); RED CELL DISTRIBUTION WIDTH 11.8 % (11.5-14.5); WHITE BLOOD COUNT 8.8 10^3/uL (4.0-10.0)
[2018-02-12 20:23] LABS: ALBUMIN/GLOBULIN RATIO 1.05 (1.00-1.93); ALKALINE PHOSPHATASE 124 U/L (45-117); ALT/SGPT 24 U/L (12-78); ANION GAP 9 MEQ/L (8-16); AST/SGOT 13 U/L (7-37); BILIRUBIN,TOTAL 0.3 MG/DL (0.2-1.0); BLOOD UREA NITROGEN 10 MG/DL (7-18); CALCIUM LEVEL 9.1 MG/DL (8.5-10.1); CARBON DIOXIDE LEVEL 26 MEQ/L (21-32); CHLORIDE LEVEL 101 MEQ/L (98-107); CHOLESTEROL LEVEL 301 MG/DL (<200); CHOLESTEROL RISK RATIO 7.921 (<5); CREATININE FOR GFR 0.57 MG/DL (0.55-1.30); GLOMERULAR FILTRATION RATE > 60.0 (>58); GLUCOSE, FASTING 345 MG/DL (70-100); HDL CHOLESTEROL 38 MG/DL (>40); NON-HDL-C 263 MG/DL; POTASSIUM SERUM 4.4 MEQ/L (3.5-5.1); SODIUM LEVEL 136 MEQ/L (136-145); THYROID STIMULATING HORMONE 0.523 uIU/ML (0.358-3.740); TOTAL PROTEIN 7.8 GM/DL (6.4-8.2); TRIGLYCERIDES LEVEL 446 MG/DL (<150)
[2018-02-12 20:48] LABS: ESTIMATED AVERAGE GLUCOSE 220 MG/DL (60-110); HEMOGLOBIN A1c 9.3 %
[2018-02-14 12:24] LABS: HIV 1&2 SCREEN CENTAUR NEGATIVE (NEGATIVE)
== END ==
LOC: M LAB REF 17:24
DX: Z11.4 Encounter for screening for human immunodeficiency virus [HIV] (principal); K50.90 Crohn's disease, unspecified, without complications; F41.9 Anxiety disorder, unspecified; E11.9 Type 2 diabetes mellitus without complications; I10 Essential (primary) hypertension; Z79.899 Other long term (current) drug therapy
CPT/HCPCS: 84443

== ENCOUNTER → 2018-02-12 | Outpatient (REF) | payer MEDICARE, MEDICAID ==
[2018-02-15 00:07] LABS: AMPHETAMINE SCREEN, URINE Negative ng/mL (Cutoff=1000); BARBITURATES SCREEN, URINE Negative ng/mL (Cutoff=200); BENZODIAZEPINES, URINE SCREEN Negative ng/mL (Cutoff=200); CANNABINOID SCREEN, URINE Negative ng/mL (Cutoff=20); COCAINE SCREEN, URINE Negative ng/mL (Cutoff=300); CREATININE, URINE 38.5 mg/dL (20.0-300.0); FENTANYL URINE SCREEN Negative pg/mL (Cutoff=2000); METHADONE, URINE SCREEN Negative ng/mL (Cutoff=300); OPIATE SCREEN, URINE Negative ng/mL (Cutoff=300); OXYCODONE, SCREEN, URINE Negative ng/mL (Cutoff=100); PCP SCREEN, URINE Negative ng/mL (Cutoff=25); SPECIFIC GRAVITY, URINE 1.013 (.); pH, URINE 5.5 (4.5-8.9)
== END ==
LOC: M LAB REF 17:21
DX: F41.9 Anxiety disorder, unspecified (principal)

== ENCOUNTER 2018-02-19 23:08 | Emergency (ER) | payer MEDICARE, MEDICAID ==
[2018-02-20 00:55] LABS: HEMATOCRIT 43.4 % (36.0-47.0); MEAN CORPUSCULAR HEMOGLOBIN 31.7 pg (27.0-33.0); MEAN CORPUSCULAR HGB CONC 34.6 g/dl (32.0-36.5); MEAN CORPUSCULAR VOLUME 91.8 fl (80.0-96.0); PLATELET COUNT, AUTOMATED 206 10^3/uL (150-450); RED BLOOD COUNT 4.73 10^6/uL (4.00-5.40); RED CELL DISTRIBUTION WIDTH 11.5 % (11.5-14.5)
[2018-02-20 00:56] LABS: ADD MANUAL DIFFER YES; DIFF SLIDE NUMBER 100; POSITIVE DIFF POS FLAG; WHITE BLOOD COUNT 13.8 10^3/uL (4.0-10.0)
[2018-02-20 01:04] LABS: INR 0.99; PROTHROMBIN TIME 13.2 SECONDS (12.4-14.5)
[2018-02-20 01:05] LABS: PARTIAL THROMBOPLASTIN TIME 26.7 SECONDS (26.8-37.9)
[2018-02-20 01:17] LABS: ANION GAP 6 MEQ/L (8-16); BLOOD UREA NITROGEN 10 MG/DL (7-18); CALCIUM LEVEL 8.6 MG/DL (8.5-10.1); CARBON DIOXIDE LEVEL 27 MEQ/L (21-32); CHLORIDE LEVEL 104 MEQ/L (98-107); CK-MB VALUE MASS < 1.0 NG/ML (<3.6); CPK CREATINE PHOSPHOKINASE 56 U/L (26-192); CREATININE FOR GFR 0.58 MG/DL (0.55-1.30); GLOMERULAR FILTRATION RATE > 60.0 (>58); GLUCOSE, FASTING 264 MG/DL (70-100); MB/CK RELATIVE INDEX 1.78 (< OR =4); POTASSIUM SERUM 3.6 MEQ/L (3.5-5.1); SODIUM LEVEL 137 MEQ/L (136-145); TROPONIN I < 0.02 NG/ML (< 0.10)
[2018-02-20 01:43] LABS: ATYPICAL LYMPH 2 % (0-5); LYMPHOCYTES 31 % (16-52); MONOCYTES 1 % (0-8); NEUTROPHILS 66 % (35-75); PLATELET ESTIMATE NORMAL (NORMAL)
[2018-02-20] MEDS ORDERED: ISOVUE-370 76% 100ML VIAL (Q9967) As Ordered (01:48)
== END 2018-02-20 02:28 | disposition left against medical advice (07) ==
LOC: M ED 23:08
DX: R07.9 Chest pain, unspecified (principal); E11.9 Type 2 diabetes mellitus without complications; I10 Essential (primary) hypertension; K21.9 Gastro-esophageal reflux disease without esophagitis; Z86.73 Personal history of transient ischemic attack (TIA), and cerebral infarction without residual deficits; F41.9 Anxiety disorder, unspecified; Z79.4 Long term (current) use of insulin; Z79.899 Other long term (current) drug therapy; Z88.6 Allergy status to analgesic agent; Z88.1 Allergy status to other antibiotic agents; Z88.0 Allergy status to penicillin; Z88.2 Allergy status to sulfonamides; Z88.5 Allergy status to narcotic agent; Z88.8 Allergy status to other drugs, medicaments and biological substances
CPT/HCPCS: 93005

== ENCOUNTER → 2018-02-24 | Outpatient (CLI) | payer MEDICARE, MEDICAID | LOC: M RAD 16:15 | DX: L02.412 Cutaneous abscess of left axilla (principal) | CPT/HCPCS: 76882 ==

== ENCOUNTER → 2018-02-26 | Outpatient (REF) | payer MEDICARE, MEDICAID | LOC: M LAB REF 17:58 | DX: F41.9 Anxiety disorder, unspecified (principal); R10.84 Generalized abdominal pain | CPT/HCPCS: 80307 ==

== ENCOUNTER → 2018-03-12 | Outpatient (REF) | payer MEDICARE, MEDICAID ==
[2018-03-19 13:06] LABS: SUMMARY SEE SEPARATE REPORT
== END ==
LOC: M LAB REF 17:14
DX: F41.9 Anxiety disorder, unspecified (principal)
CPT/HCPCS: 80307

== ENCOUNTER 2018-03-24 17:03 | Emergency (ER) | payer MEDICARE, MEDICAID | END 2018-03-24 18:17 | disposition left against medical advice (07) | LOC: M ED 17:03 | DX: Z53.29 Procedure and treatment not carried out because of patient's decision for other reasons (principal) ==

== ENCOUNTER → 2018-03-31 | Outpatient (REF) | payer MEDICARE, MEDICAID ==
[2018-04-05 14:09] LABS: ALPRAZOLAM, URINE Positive (.); ALPRAZOLAM, URINE CONFIRM 122 ng/mL (Cutoff=100); AMPHETAMINE SCREEN, URINE Negative ng/mL (Cutoff=1000); BARBITURATES SCREEN, URINE Negative ng/mL (Cutoff=200); BENZODIAZEPINES, URINE Positive ng/mL (Cutoff=100); BENZODIAZEPINES, URINE SCREEN See Final Results ng/mL (Cutoff=200); CANNABINOID SCREEN, URINE Negative ng/mL (Cutoff=20); CLONAZEPAM, URINE Negative (Cutoff=100); COCAINE SCREEN, URINE Negative ng/mL (Cutoff=300); CREATININE, URINE 92.8 mg/dL (20.0-300.0); FENTANYL URINE SCREEN Negative pg/mL (Cutoff=2000); FLURAZEPAM, URINE Negative (Cutoff=100); LORAZEPAM, URINE Negative (Cutoff=100); METHADONE, URINE SCREEN Negative ng/mL (Cutoff=300); MIDAZOLAM, URINE Negative (Cutoff=100); NORDIAZEPAM, URINE Negative (Cutoff=100); OPIATE SCREEN, URINE Negative ng/mL (Cutoff=300); OXAZEPAM, URINE Negative (Cutoff=100); OXYCODONE, SCREEN, URINE Negative ng/mL (Cutoff=100); PCP SCREEN, URINE Negative ng/mL (Cutoff=25); SPECIFIC GRAVITY, URINE 1.015 (.); TEMAZEPAM, URINE Negative (Cutoff=100); TRIAZOLAM, URINE Negative (Cutoff=100); pH, URINE 6.4 (4.5-8.9)
== END ==
LOC: M LAB REF 16:32
DX: M54.5 Low back pain (principal)
CPT/HCPCS: 80307

== ENCOUNTER 2018-04-04 17:08 | Emergency (ER) | payer MEDICARE, MEDICAID ==
[2018-04-04] MEDS ORDERED: METOCLOPRAMIDE INJ 10MG/2ML VIAL (J2765) IV (18:15)
[2018-04-04] MEDS: NS 1,000 ML IV (18:43)
[2018-04-04] MEDS: HYDROmorphone HCL 1 MG/ML SYRINGE (J1170) IV (19:33)
[2018-04-04 19:36] LABS: BASO # 0.1 10^3/uL (0.0-0.2); BASO % 0.5 % (0.0-1.0); EOS # 0.1 10^3/uL (0.0-0.50); EOS % 0.6 % (0.0-3.0); HEMATOCRIT 41.9 % (36.0-47.0); HEMOGLOBIN 14.7 g/dl (12.0-15.5); IMMATURE GRANULOCYTE % 0.2 % (0-3.0); LYMPH # 4.2 10^3/uL (1.5-4.5); LYMPH % 33.7 % (24.0-44.0); MEAN CORPUSCULAR HEMOGLOBIN 32.7 pg (27.0-33.0); MEAN CORPUSCULAR HGB CONC 35.1 g/dl (32.0-36.5); MEAN CORPUSCULAR VOLUME 93.1 fl (80.0-96.0); MONO # 0.6 10^3/uL (0.0-0.8); NEUTROPHILS # 7.5 10^3/uL (1.8-7.7); PLATELET COUNT, AUTOMATED 229 10^3/uL (150-450); WHITE BLOOD COUNT 12.5 10^3/uL (4.0-10.0)
[2018-04-04 19:47] LABS: INR 0.98; PROTHROMBIN TIME 13.1 SECONDS (12.4-14.5)
[2018-04-04 19:48] LABS: PARTIAL THROMBOPLASTIN TIME 26.9 SECONDS (26.8-37.9)
[2018-04-04 20:03] LABS: ALBUMIN 3.8 GM/DL (3.2-5.2); ALKALINE PHOSPHATASE 136 U/L (45-117); ALT/SGPT 39 U/L (12-78); AMYLASE 45 U/L (25-115); AST/SGOT 21 U/L (7-37); BILIRUBIN,DIRECT < 0.1 MG/DL (0.0-0.2); BILIRUBIN,TOTAL 0.3 MG/DL (0.2-1.0); BLOOD UREA NITROGEN 8 MG/DL (7-18); CALCIUM LEVEL 8.3 MG/DL (8.5-10.1); CARBON DIOXIDE LEVEL 26 MEQ/L (21-32); CHLORIDE LEVEL 108 MEQ/L (98-107); CREATININE FOR GFR 0.66 MG/DL (0.55-1.30); GLUCOSE, FASTING 230 MG/DL (70-100); LIPASE 150 U/L (73-393); POTASSIUM SERUM 3.8 MEQ/L (3.5-5.1); SODIUM LEVEL 140 MEQ/L (136-145)
[2018-04-04 20:04] LABS: LACTIC ACID SEPSIS PROTOCOL 1.2 MMOL/L (0.4-2.0)
[2018-04-04 20:18] LABS: ALBUMIN/GLOBULIN RATIO 1.06 (1.00-1.93); TOTAL PROTEIN 7.4 GM/DL (6.4-8.2)
[2018-04-04 20:54] LABS: ANION GAP 6 MEQ/L (8-16)
== END 2018-04-04 20:16 | disposition left against medical advice (07) ==
LOC: M ED 17:08
DX: K62.5 Hemorrhage of anus and rectum (principal); R10.9 Unspecified abdominal pain; I10 Essential (primary) hypertension; J45.909 Unspecified asthma, uncomplicated; E11.9 Type 2 diabetes mellitus without complications; K58.9 Irritable bowel syndrome, unspecified; K21.9 Gastro-esophageal reflux disease without esophagitis; F33.9 Major depressive disorder, recurrent, unspecified; F41.9 Anxiety disorder, unspecified; E66.9 Obesity, unspecified; Z79.01 Long term (current) use of anticoagulants; Z79.899 Other long term (current) drug therapy; Z79.4 Long term (current) use of insulin; Z79.1 Long term (current) use of non-steroidal anti-inflammatories (NSAID); Z88.8 Allergy status to other drugs, medicaments and biological substances; Z88.1 Allergy status to other antibiotic agents; Z88.5 Allergy status to narcotic agent; Z88.0 Allergy status to penicillin; Z88.2 Allergy status to sulfonamides; Z98.890 Other specified postprocedural states; Z86.73 Personal history of transient ischemic attack (TIA), and cerebral infarction without residual deficits; Z87.442 Personal history of urinary calculi; Z87.19 Personal history of other diseases of the digestive system
CPT/HCPCS: J1170

== ENCOUNTER 2018-04-14 12:22 | Emergency (ER) | payer MEDICARE, MEDICAID ==
[2018-04-14 13:49] LABS: BASO # 0.1 10^3/uL (0.0-0.2); BASO % 0.5 % (0.0-1.0); EOS # 0.1 10^3/uL (0.0-0.50); EOS % 0.9 % (0.0-3.0); HEMATOCRIT 40.8 % (36.0-47.0); HEMOGLOBIN 14.1 g/dl (12.0-15.5); IMMATURE GRANULOCYTE % 0.2 % (0-3.0); LYMPH % 30.9 % (24.0-44.0); MEAN CORPUSCULAR HEMOGLOBIN 31.5 pg (27.0-33.0); MEAN CORPUSCULAR HGB CONC 34.6 g/dl (32.0-36.5); MEAN CORPUSCULAR VOLUME 91.3 fl (80.0-96.0); MONO # 0.6 10^3/uL (0.0-0.8); MONO % 4.5 % (0.0-5.0); NEUTROPHILS # 8.1 10^3/uL (1.8-7.7); RED BLOOD COUNT 4.47 10^6/uL (4.00-5.40); RED CELL DISTRIBUTION WIDTH 11.9 % (11.5-14.5); WHITE BLOOD COUNT 12.8 10^3/uL (4.0-10.0)
[2018-04-14] MEDS: ONDANSETRON 4MG/2ML VIAL (J2405) IV (14:10)
[2018-04-14] MEDS: NS 1,000 ML IV (14:11)
[2018-04-14] MEDS: HYDROmorphone HCL 1 MG/ML SYRINGE (J1170) IV (14:11)
[2018-04-14 14:16] LABS: PLATELET COUNT, AUTOMATED 141 10^3/uL (150-450); POS COUNT POS FLAG
[2018-04-14 14:27] LABS: CONTROL LINE HCG INT CTR LINE PRESENT; HCG, SERUM QUALITATIVE NEGATIVE (NEGATIVE)
[2018-04-14 14:38] LABS: ALBUMIN 3.5 GM/DL (3.2-5.2); ALT/SGPT 23 U/L (12-78); AMYLASE 35 U/L (25-115); ANION GAP 10 MEQ/L (8-16); AST/SGOT 10 U/L (7-37); BILIRUBIN,DIRECT 0.1 MG/DL (0.0-0.2); BILIRUBIN,TOTAL 0.5 MG/DL (0.2-1.0); BLOOD UREA NITROGEN 7 MG/DL (7-18); CALCIUM LEVEL 8.6 MG/DL (8.5-10.1); CARBON DIOXIDE LEVEL 27 MEQ/L (21-32); CHLORIDE LEVEL 103 MEQ/L (98-107); CPK CREATINE PHOSPHOKINASE 52 U/L (26-192); CREATININE FOR GFR 0.43 MG/DL (0.55-1.30); GLOMERULAR FILTRATION RATE > 60.0 (>58); GLUCOSE, FASTING 147 MG/DL (70-100); LIPASE 95 U/L (73-393); SODIUM LEVEL 140 MEQ/L (136-145); TROPONIN I < 0.02 NG/ML (< 0.10)
[2018-04-14 14:41] LABS: ALKALINE PHOSPHATASE 92 U/L (45-117); CK-MB VALUE MASS < 1.0 NG/ML (<3.6); MB/CK RELATIVE INDEX 1.92 (< OR =4)
[2018-04-14] MEDS: LORazepam 2 MG/ML VIAL (J2060) IV (14:42)
[2018-04-14] MEDS ORDERED: ISOVUE-370 76% 100ML VIAL (Q9967) As Ordered (14:51)
== END 2018-04-14 16:57 | disposition left against medical advice (07) ==
LOC: M ED 12:22
DX: R11.10 Vomiting, unspecified (principal); R07.9 Chest pain, unspecified; I25.2 Old myocardial infarction; E11.9 Type 2 diabetes mellitus without complications; I10 Essential (primary) hypertension; K50.90 Crohn's disease, unspecified, without complications; E78.9 Disorder of lipoprotein metabolism, unspecified; N80.9 Endometriosis, unspecified; F17.200 Nicotine dependence, unspecified, uncomplicated; Z79.899 Other long term (current) drug therapy; Z86.73 Personal history of transient ischemic attack (TIA), and cerebral infarction without residual deficits; Z86.711 Personal history of pulmonary embolism; Z86.69 Personal history of other diseases of the nervous system and sense organs; Z87.442 Personal history of urinary calculi; Z98.890 Other specified postprocedural states; Z88.8 Allergy status to other drugs, medicaments and biological substances; Z88.1 Allergy status to other antibiotic agents; Z88.5 Allergy status to narcotic agent; Z88.0 Allergy status to penicillin; Z88.2 Allergy status to sulfonamides
CPT/HCPCS: J1170

== ENCOUNTER 2018-04-15 18:42 | Emergency (ER) | payer MEDICARE, MEDICAID ==
[2018-04-15] MEDS: diphenhydrAMINE INJ 50MG/ML VIAL (J1200) IV ×2 (19:30→20:30)
[2018-04-15] MEDS: HALOPERIDOL 5 MG/ML VIAL (J1630) IV ×2 (19:30→20:30)
[2018-04-15] MEDS: NS 1,000 ML IV ×2 (20:30)
[2018-04-15 20:49] LABS: HEMATOCRIT 41.8 % (36.0-47.0); HEMOGLOBIN 14.8 g/dl (12.0-15.5); MEAN CORPUSCULAR HEMOGLOBIN 31.6 pg (27.0-33.0); MEAN CORPUSCULAR HGB CONC 35.4 g/dl (32.0-36.5); MEAN CORPUSCULAR VOLUME 89.1 fl (80.0-96.0); PLATELET COUNT, AUTOMATED 209 10^3/uL (150-450); RED BLOOD COUNT 4.69 10^6/uL (4.00-5.40); RED CELL DISTRIBUTION WIDTH 11.9 % (11.5-14.5)
[2018-04-15 20:50] LABS: WHITE BLOOD COUNT 13.8 10^3/uL (4.0-10.0)
[2018-04-15 20:51] LABS: ADD MANUAL DIFFER YES; DIFF SLIDE NUMBER 404; POSITIVE DIFF POS FLAG; POSITIVE MORPH POS FLAG
[2018-04-15 20:55] LABS: APPEARANCE, URINE HAZY (CLEAR); BACTERIA, URINE AUTO 2+ (NEGATIVE); BILIRUBIN, URINE AUTO NEGATIVE (NEGATIVE); BLOOD, URINE BLOOD 3+ (NEGATIVE); COLOR, URINE YELLOW (YELLOW); GLUCOSE, URINE (UA) AUTO NEGATIVE (NEGATIVE); KETONE, URINE AUTO NEGATIVE (NEGATIVE); LEUKOCYTE ESTERASE, URINE AUTO NEGATIVE (NEGATIVE); MUCUS, URINE SMALL (NEGATIVE); NITRITE, URINE AUTO NEGATIVE (NEGATIVE); PROTEIN, URINE AUTO NEGATIVE (NEGATIVE); RBC, URINE AUTO TNTC /HPF (0-3); SQUAMOUS EPITHELIAL CELL UR AU 1 /HPF (0-6); UROBILINOGEN, URINE AUTO 0.2 mg/dL (0.0-2.0); WBC, URINE AUTO 1 /HPF (0-3)
[2018-04-15 21:00] LABS: INR 0.94; PARTIAL THROMBOPLASTIN TIME 24.7 SECONDS (26.8-37.9); PROTHROMBIN TIME 12.7 SECONDS (12.4-14.5)
[2018-04-15] MEDS: GASTROGRAFIN SOLUTION 30ML PO ×2 (21:00→21:20)
[2018-04-15 21:07] LABS: LACTIC ACID SEPSIS PROTOCOL 1.3 MMOL/L (0.4-2.0)
[2018-04-15 21:07] LABS: ALBUMIN 3.8 GM/DL (3.2-5.2); ALBUMIN/GLOBULIN RATIO 0.86 (1.00-1.93); ALKALINE PHOSPHATASE 106 U/L (45-117); ALT/SGPT 22 U/L (12-78); ANION GAP 8 MEQ/L (8-16); AST/SGOT 12 U/L (7-37); BILIRUBIN,DIRECT < 0.1 MG/DL (0.0-0.2); BILIRUBIN,TOTAL 0.4 MG/DL (0.2-1.0); BLOOD UREA NITROGEN 6 MG/DL (7-18); CALCIUM LEVEL 9.2 MG/DL (8.5-10.1); CARBON DIOXIDE LEVEL 28 MEQ/L (21-32); CHLORIDE LEVEL 102 MEQ/L (98-107); GLOMERULAR FILTRATION RATE > 60.0 (>58); GLUCOSE, FASTING 124 MG/DL (70-100); LIPASE 140 U/L (73-393); POTASSIUM SERUM 3.9 MEQ/L (3.5-5.1); SODIUM LEVEL 138 MEQ/L (136-145); TOTAL PROTEIN 8.2 GM/DL (6.4-8.2)
[2018-04-15] MEDS ORDERED: ONDANSETRON 4MG/2ML VIAL (J2405) As Ordered (21:12)
[2018-04-15] MEDS: ONDANSETRON 4MG/2ML VIAL (J2405) IV (21:18)
[2018-04-15 21:20] LABS: ATYPICAL LYMPH 2 % (0-5); EOSINOPHILS 1 % (0-5); LYMPHOCYTES 46 % (16-52); MONOCYTES 6 % (0-8); NEUTROPHILS 45 % (35-75); PLATELET ESTIMATE NORMAL (NORMAL)
[2018-04-15] MEDS: HYDROmorphone HCL 1 MG/ML SYRINGE (J1170) IV ×2 (21:20→23:15)
[2018-04-15] MEDS ORDERED: ISOVUE-370 76% 100ML VIAL (Q9967) As Ordered (22:19)
[2018-04-16] MEDS: PHENAZOPYRIDINE 100 MG TAB PO
[2018-04-16] MEDS: CIPROFLOXACIN 500 MG TAB PO
== END 2018-04-16 00:36 | disposition home or self-care (01) ==
LOC: M ED 04-16 00:36
DX: N30.00 Acute cystitis without hematuria (principal); K21.9 Gastro-esophageal reflux disease without esophagitis; F41.9 Anxiety disorder, unspecified; F32.9 Major depressive disorder, single episode, unspecified; G89.29 Other chronic pain; Z86.718 Personal history of other venous thrombosis and embolism; F17.200 Nicotine dependence, unspecified, uncomplicated; Z88.8 Allergy status to other drugs, medicaments and biological substances; Z88.6 Allergy status to analgesic agent; Z88.1 Allergy status to other antibiotic agents; Z88.5 Allergy status to narcotic agent; Z88.0 Allergy status to penicillin; Z88.2 Allergy status to sulfonamides; Z79.899 Other long term (current) drug therapy; Z79.02 Long term (current) use of antithrombotics/antiplatelets; Z79.4 Long term (current) use of insulin
CPT/HCPCS: J1170

== ENCOUNTER 2019-02-02 20:41 | Emergency (ER) | payer MEDICARE, MEDICAID ==
[~2019-02-02] VITALS: Ht 170.2 cm; Wt 73.2 kg
[~2019-02-02 20:41] MED LIST changes: +ADV500INH INH; +CHAN1PAK11; +FLOM0.4C39 PO; +HYDR-3715 PO; +MECL-68 PO; +METH1TAB40 PO; +NITR0.4S14 SL; +OMEP40CA2 PO; +ONDA4TAB6 PO; +OXYC1CAP PO; +PRED20TA PO; +PROAAER10 INH; +PROZ20CA11 PO; +PYRI1TAB5 PO; +ROBA500T PO; +XANA0.5T PO; -ZOFR20TA PO; +ZOFR4TAB14 PO; +ZOFR4TAB16 PO; +ZOLP5TAB PO
[2019-02-02 21:21] VITALS: BP 132/93
[2019-02-02 21:24] LABS: BASO # 0.1 10^3/uL (0.0-0.2); BASO % 0.5 % (0.0-1.0); EOS # 0.1 10^3/uL (0.0-0.50); HEMATOCRIT 42.5 % (36.0-47.0); HEMOGLOBIN 14.4 g/dl (12.0-15.5); LYMPH # 4.2 10^3/uL (1.5-4.5); LYMPH % 41.6 % (24.0-44.0); MEAN CORPUSCULAR HEMOGLOBIN 32.2 pg (27.0-33.0); MEAN CORPUSCULAR HGB CONC 33.9 g/dl (32.0-36.5); MEAN CORPUSCULAR VOLUME 95.1 fl (80.0-96.0); MONO # 0.4 10^3/uL (0.0-0.8); MONO % 4.2 % (0.0-5.0); NEUTROPHILS # 5.2 10^3/uL (1.8-7.7); NEUTROPHILS % 52.3 % (36.0-66.0); PLATELET COUNT, AUTOMATED 206 10^3/uL (150-450); RED BLOOD COUNT 4.47 10^6/uL (4.00-5.40)
--- NOTE | 2019-02-02 21:43 | ECGEPIP ---
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
[2019-02-02 21:50] LABS: ALBUMIN 3.6 GM/DL (3.2-5.2); ALT/SGPT 24 U/L (12-78); BILIRUBIN,DIRECT < 0.1 MG/DL (0.0-0.2); BILIRUBIN,TOTAL 0.2 MG/DL (0.2-1.0); BLOOD UREA NITROGEN 15 MG/DL (7-18); CALCIUM LEVEL 8.5 MG/DL (8.5-10.1); CARBON DIOXIDE LEVEL 26 MEQ/L (21-32); CHLORIDE LEVEL 104 MEQ/L (98-107); CK-MB VALUE MASS < 1.0 NG/ML (<3.6); CPK CREATINE PHOSPHOKINASE 49 U/L (26-192); CREATININE FOR GFR 0.58 MG/DL (0.55-1.30); GLOMERULAR FILTRATION RATE > 60.0 (>58); GLUCOSE, FASTING 218 MG/DL (70-100); LIPASE 111 U/L (73-393); MB/CK RELATIVE INDEX 2.04 (< OR =4); POTASSIUM SERUM 3.8 MEQ/L (3.5-5.1); SODIUM LEVEL 136 MEQ/L (136-145); TROPONIN I < 0.02 NG/ML (< 0.10)
[2019-02-02] MEDS ORDERED: HALOPERIDOL 5 MG/ML VIAL (J1630) IV ONE (22:15)
[2019-02-04] MEDS ORDERED: CIPR-249 PO (17:53)
== END 2019-02-03 00:06 | disposition left against medical advice (07) ==
LOC: M ED 20:41
DX: R31.9 Hematuria, unspecified (principal); Z87.442 Personal history of urinary calculi; R07.9 Chest pain, unspecified; F17.210 Nicotine dependence, cigarettes, uncomplicated; Z88.0 Allergy status to penicillin; Z88.1 Allergy status to other antibiotic agents; Z88.2 Allergy status to sulfonamides; Z88.5 Allergy status to narcotic agent; Z88.6 Allergy status to analgesic agent; Z88.8 Allergy status to other drugs, medicaments and biological substances

== ENCOUNTER 2019-02-04 14:06 | Emergency (ER) | payer MEDICARE, MEDICAID ==
[~2019-02-04] VITALS: Ht 170.2 cm; Wt 73.2 kg
[2019-02-04] MEDS ORDERED: ONDANSETRON 4MG/2ML VIAL (J2405) IV ONE (15:00)
[2019-02-04] MEDS ORDERED: HYDROMORPHONE HCL 0.5 MG/ 0.5 ML SYRINGE (J1170 PER 1) IV ONE ×2 (15:30→17:15)
--- NOTE | 2019-02-04 15:59 | REP ---
KUB, ABDOMEN AND PELVIS: Two KUB films of abdomen and pelvis performed. There is no evidence of bowel obstruction. No dilated small bowel loops are seen. A couple phleboliths are seen in the inferior pelvis. No definite renal calcifications are seen. There is slight curvature of the lumbar spine toward the right. IMPRESSION: Unremarkable exam. Electronically Signed by Ellis Tucker MD 02/05/2019 08:33 P
[2019-02-04 16:01] LABS: BASO % 0.4 % (0.0-1.0); EOS # 0.1 10^3/uL (0.0-0.50); EOS % 0.7 % (0.0-3.0); HEMATOCRIT 42.5 % (36.0-47.0); HEMOGLOBIN 14.4 g/dl (12.0-15.5); LYMPH # 3.9 10^3/uL (1.5-4.5); LYMPH % 35.9 % (24.0-44.0); MEAN CORPUSCULAR HEMOGLOBIN 32.2 pg (27.0-33.0); MEAN CORPUSCULAR HGB CONC 33.9 g/dl (32.0-36.5); MEAN CORPUSCULAR VOLUME 95.1 fl (80.0-96.0); MONO # 0.5 10^3/uL (0.0-0.8); MONO % 4.3 % (0.0-5.0); NEUTROPHILS # 6.3 10^3/uL (1.8-7.7); NEUTROPHILS % 58.4 % (36.0-66.0); PLATELET COUNT, AUTOMATED 199 10^3/uL (150-450); RED BLOOD COUNT 4.47 10^6/uL (4.00-5.40); WHITE BLOOD COUNT 10.8 10^3/uL (4.0-10.0)
--- NOTE | 2019-02-04 16:22 | REP ---
Chest x-ray: Two views. History: Rule out pneumonia. Comparison chest x-ray: December 08, 2017. Findings: The lungs are symmetrically aerated and clear. Pleural angles are sharp. Heart size is normal. No infiltrate is seen. Pulmonary vasculature is not increased. Impression: No acute disease. Electronically Signed by Reyes Mena MD 02/04/2019 04:13 P
[2019-02-04 16:27] LABS: ALBUMIN 3.6 GM/DL (3.2-5.2); ALT/SGPT 20 U/L (12-78); BILIRUBIN,DIRECT < 0.1 MG/DL (0.0-0.2); BILIRUBIN,TOTAL 0.3 MG/DL (0.2-1.0); BLOOD UREA NITROGEN 6 MG/DL (7-18); CALCIUM LEVEL 8.7 MG/DL (8.5-10.1); CARBON DIOXIDE LEVEL 26 MEQ/L (21-32); CHLORIDE LEVEL 106 MEQ/L (98-107); CK-MB VALUE MASS < 1.0 NG/ML (<3.6); CPK CREATINE PHOSPHOKINASE 38 U/L (26-192); CREATININE FOR GFR 0.45 MG/DL (0.55-1.30); GLOMERULAR FILTRATION RATE > 60.0 (>58); GLUCOSE, FASTING 153 MG/DL (70-100); LIPASE 114 U/L (73-393); MB/CK RELATIVE INDEX 2.63 (< OR =4); POTASSIUM SERUM 4.2 MEQ/L (3.5-5.1); SODIUM LEVEL 139 MEQ/L (136-145); TOTAL PROTEIN 6.8 GM/DL (6.4-8.2); TROPONIN I < 0.02 NG/ML (< 0.10)
[2019-02-04] MEDS ORDERED: PROMETHAZINE INJ 25 MG/ML VIAL (J2550) IV ONE (16:30)
[2019-02-04] MEDS ORDERED: NS 1,000 ML IV ONE (16:45)
[2019-02-04 16:53] VITALS: BP 116/78
[2019-02-04] MEDS ORDERED: CIPROFLOXACIN 400 MG in APPROPRIATE DILUENT 1 EA IV ONE (17:15)
--- NOTE | 2019-02-04 17:16 | REP ---
RENAL AND BLADDER ULTRASOUND: Real-time sonographic evaluation of the kidneys performed. The right kidney is normal in size and echotexture measuring 12.8 x 5.1 x 4.6 cm. There is no hydronephrosis or nephrolithiasis. The left kidney is mildly enlarged with diffuse heterogeneous echotexture, particularly in the upper pole and loss of cortical medullary differentiation. The left kidney measures 13.8 x 5.2 x 7.1 cm. There is no hydronephrosis or nephrolithiasis. Urinary bladder measures 6.8 x 8.3 x 3.7 cm for a volume of 109 mL. No definite mass or calculus is seen. IMPRESSION: Mildly enlarged heterogenous left kidney may represent pyelonephritis. No evidence of hydronephrosis or nephrolithiasis bilaterally. Electronically Signed by Ellis Tucker MD 02/05/2019 08:35 P
[2019-02-04] MEDS ORDERED: CIPR-249 PO (17:53)
--- NOTE | 2019-02-04 18:28 | REP ---
CT of the abdomen pelvis without IV and oral contrast: Comparisons are 01/07/2019 and 01/12/2018. There is no hydronephrosis or hydroureter. There are no renal calculi. There are multiple calcifications in the pelvis bilaterally, unchanged from both prior studies, likely phleboliths in the absence of hydronephrosis/hydroureter.. The visualized lung fountain are unremarkable. The unenhanced hepatic parenchyma, pancreas and spleen are unremarkable except for occasional splenic calcified granulomas. There is a cholecystectomy, appendectomy and hysterectomy. The adrenals are unremarkable. The abdominal aorta is unremarkable. The bowel and mesentery are unremarkable. Pelvis: The bladder is unremarkable. The vaginal cuff and adnexa are unremarkable. There is no ascites or adenopathy. Impression: There are multiple pelvic calcifications, unchanged from both prior studies. The in the absence of hydronephrosis/hydroureter, these are likely phleboliths. If there is continuing clinical concern consider a CT urogram to identify the location of the ureter in relation to these calculi. Cholecystectomy, hysterectomy and appendectomy. Otherwise, essentially negative CT of the abdomen pelvis. Electronically Signed by Ellis Martino MD 02/04/2019 06:19 P
--- NOTE | 2019-02-04 21:45 | ECGEPIP ---
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
== END 2019-02-04 18:36 | disposition left against medical advice (07) ==
LOC: M ED 14:06
DX: B00.89 Other herpesviral infection (principal); N10 Acute pyelonephritis; F41.9 Anxiety disorder, unspecified; R06.02 Shortness of breath; Z87.442 Personal history of urinary calculi; Z87.42 Personal history of other diseases of the female genital tract; Z91.410 Personal history of adult physical and sexual abuse; F17.210 Nicotine dependence, cigarettes, uncomplicated; E11.9 Type 2 diabetes mellitus without complications; Z86.711 Personal history of pulmonary embolism; Z86.73 Personal history of transient ischemic attack (TIA), and cerebral infarction without residual deficits; Z86.79 Personal history of other diseases of the circulatory system
CPT/HCPCS: 71046; 74018; 74176; 76775; 80048; 80076; 81001; 82550; 82553; 83690; 84484; 85025; 87086; 93005; 96361; 96365; 96375; 96376; 99284; J0744; J1170; J2405

== ENCOUNTER 2019-02-09 15:06 | Emergency (ER) | payer MEDICARE, MEDICAID ==
[~2019-02-09] VITALS: Ht 170.2 cm; Wt 73.2 kg
[~2019-02-09 15:06] MED LIST changes: +CIPR-249 PO
[2019-02-09 15:07] VITALS: BP 126/88
[2019-02-09] MEDS ORDERED: PANTOPRAZOLE 40MG INJ (PROTONIX) (C9113) IV ONE (16:15)
[2019-02-09] MEDS ORDERED: PROMETHAZINE INJ 25 MG/ML VIAL (J2550) IV ONE (16:15)
--- NOTE | 2019-02-09 16:41 | REP ---
Right wrist four views: There is a small calcification at the tip of the ulnar styloid, nonspecific, ligamentous calcification versus avulsion. Correlate with point tenderness. No other fracture is identified. There is no dislocation. Mineralization and joint spaces are normal. Electronically Signed by Ellis Martino MD 02/09/2019 04:34 P
[2019-02-09] MEDS ORDERED: LORazepam 2 MG/ML VIAL (J2060) IV STA (16:55)
[2019-02-09 17:16] LABS: HEMATOCRIT 46.6 % (36.0-47.0); HEMOGLOBIN 15.8 g/dl (12.0-15.5); MEAN CORPUSCULAR HEMOGLOBIN 32.2 pg (27.0-33.0); MEAN CORPUSCULAR HGB CONC 33.9 g/dl (32.0-36.5); MEAN CORPUSCULAR VOLUME 95.1 fl (80.0-96.0); PLATELET COUNT, AUTOMATED 188 10^3/uL (150-450); WHITE BLOOD COUNT 12.8 10^3/uL (4.0-10.0)
[2019-02-09 17:42] LABS: ATYPICAL LYMPH 2 % (0-5); EOSINOPHILS 1 % (0-5); LYMPHOCYTES 41 % (16-52); MONOCYTES 2 % (0-8); NEUTROPHILS 54 % (35-75); PLATELET CLUMPS SMALL AMT; PLATELET ESTIMATE NORMAL (NORMAL)
[2019-02-09 17:43] LABS: TOXIC VACUOLATION 1+
[2019-02-09 17:58] LABS: ALBUMIN 4.2 GM/DL (3.2-5.2); ALT/SGPT 24 U/L (12-78); AMYLASE 37 U/L (25-115); BILIRUBIN,DIRECT 0.1 MG/DL (0.0-0.2); BILIRUBIN,TOTAL 0.4 MG/DL (0.2-1.0); BLOOD UREA NITROGEN 11 MG/DL (7-18); CALCIUM LEVEL 8.8 MG/DL (8.5-10.1); CARBON DIOXIDE LEVEL 27 MEQ/L (21-32); CHLORIDE LEVEL 104 MEQ/L (98-107); GLOMERULAR FILTRATION RATE > 60.0 (>58); GLUCOSE, FASTING 157 MG/DL (70-100); LIPASE 100 U/L (73-393); SODIUM LEVEL 136 MEQ/L (136-145); TOTAL PROTEIN 7.5 GM/DL (6.4-8.2)
[2019-02-09] MEDS ORDERED: ISOVUE-370 76% 100ML VIAL (Q9967) As Ordered ONE (17:59)
[2019-02-09] MEDS ORDERED: MORPHINE 2 MG/ML 1ML SYRINGE (J2270) IV ONE (18:00)
[2019-02-09] MEDS ORDERED: ONDANSETRON 4MG/2ML VIAL (J2405) IV ONE (18:15)
== END 2019-02-09 20:49 | disposition home or self-care (01) ==
LOC: M ED 15:06
DX: S52.611A Displaced fracture of right ulna styloid process, initial encounter for closed fracture (principal); Y04.8XXA Assault by other bodily force, initial encounter; Y92.524 Gas station as the place of occurrence of the external cause; R10.9 Unspecified abdominal pain; Z88.0 Allergy status to penicillin; Z88.1 Allergy status to other antibiotic agents; Z88.2 Allergy status to sulfonamides; Z88.5 Allergy status to narcotic agent; Z88.8 Allergy status to other drugs, medicaments and biological substances; F17.210 Nicotine dependence, cigarettes, uncomplicated
CPT/HCPCS: 36415; 73110; 80048; 80076; 82150; 83690; 85025; 86850; 86900; 86901; 96374; 96375; 99283; 99284; J2060; J2270; J2405

== ENCOUNTER 2019-02-09 22:29 | Emergency (ER) | payer MEDICARE, MEDICAID ==
[2019-02-10 01:09] VITALS: BP 141/80
[2019-02-10] MEDS ORDERED: ONDANSETRON 4MG/2ML VIAL (J2405) IV ONE (02:15)
[2019-02-10] MEDS ORDERED: ISOVUE-370 76% 100ML VIAL (Q9967) As Ordered ONE (02:21)
[2019-02-10 02:38] LABS: BASO # 0.1 10^3/uL (0.0-0.2); BASO % 0.5 % (0.0-1.0); EOS # 0.1 10^3/uL (0.0-0.50); EOS % 1.3 % (0.0-3.0); HEMATOCRIT 44.8 % (36.0-47.0); HEMOGLOBIN 15.2 g/dl (12.0-15.5); LYMPH # 4.4 10^3/uL (1.5-4.5); LYMPH % 43.5 % (24.0-44.0); MEAN CORPUSCULAR HEMOGLOBIN 32.4 pg (27.0-33.0); MEAN CORPUSCULAR HGB CONC 33.9 g/dl (32.0-36.5); MEAN CORPUSCULAR VOLUME 95.5 fl (80.0-96.0); MONO # 0.6 10^3/uL (0.0-0.8); MONO % 5.5 % (0.0-5.0); PLATELET COUNT, AUTOMATED 205 10^3/uL (150-450); RED BLOOD COUNT 4.69 10^6/uL (4.00-5.40); WHITE BLOOD COUNT 10.1 10^3/uL (4.0-10.0)
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
== END 2019-02-10 04:17 | disposition left against medical advice (07) ==
LOC: M ED 22:29
DX: Z04.71 Encounter for examination and observation following alleged adult physical abuse (principal); R10.9 Unspecified abdominal pain; R11.10 Vomiting, unspecified; R19.7 Diarrhea, unspecified; Z88.0 Allergy status to penicillin; Z88.1 Allergy status to other antibiotic agents; Z88.2 Allergy status to sulfonamides; Z88.5 Allergy status to narcotic agent; Z88.8 Allergy status to other drugs, medicaments and biological substances; F17.210 Nicotine dependence, cigarettes, uncomplicated
CPT/HCPCS: 36415; 73110; 74177; 80048; 80076; 82150; 83690; 85025; 86850; 86900; 86901; 96374; 96375; 99283; 99284; J2060; J2270; J2405; Q9967

== ENCOUNTER 2019-02-16 08:59 | Emergency (ER) | payer MEDICARE, MEDICAID ==
[~2019-02-16] VITALS: Ht 170.2 cm; Wt 73.2 kg
[2019-02-16] MEDS: NS 1,000 ML IV ONE ×2 (09:53→10:33)
[2019-02-16 10:13] LABS: BASO # 0.1 10^3/uL (0.0-0.2); BASO % 0.5 % (0.0-1.0); EOS # 0.1 10^3/uL (0.0-0.50); HEMATOCRIT 43.9 % (36.0-47.0); HEMOGLOBIN 14.5 g/dl (12.0-15.5); LYMPH # 3.4 10^3/uL (1.5-4.5); LYMPH % 25.5 % (24.0-44.0); MEAN CORPUSCULAR HEMOGLOBIN 31.5 pg (27.0-33.0); MEAN CORPUSCULAR VOLUME 95.2 fl (80.0-96.0); MONO # 0.7 10^3/uL (0.0-0.8); MONO % 5.5 % (0.0-5.0); NEUTROPHILS # 9.1 10^3/uL (1.8-7.7); NEUTROPHILS % 67.3 % (36.0-66.0); PLATELET COUNT, AUTOMATED 206 10^3/uL (150-450); RED BLOOD COUNT 4.61 10^6/uL (4.00-5.40); WHITE BLOOD COUNT 13.5 10^3/uL (4.0-10.0)
--- NOTE | 2019-02-16 10:21 | REP ---
CT ABDOMEN AND PELVIS WITHOUT IV OR ORAL CONTRAST: HISTORY: Flank pain. Comparison CT study is from February 10, 2019. 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 The lung bases are clear on axial CT images. The liver and the spleen are normal in size homogeneous in texture. The gallbladder is surgically absent. No adrenal lesion is seen. The kidneys show no evidence of hydronephrosis or calculus. There are one or two granulomatous calcifications in the spleen. No pancreatic lesion is observed. No adrenal lesion is seen. No retroperitoneal mass or adenopathy is seen. Umbilical jewelry is noted. The uterus and the appendix are surgically absent. No pelvic mass or adenopathy is seen. No free fluid is noted. No abdominal wall defect is observed. Bone window settings show no acute bony abnormality. IMPRESSION: Some vascular calcification in the aorta. A granulomatous calcification in the spleen. Status post cholecystectomy, appendectomy, and hysterectomy. Otherwise unremarkable CT study abdomen and pelvis without contrast. Electronically Signed by Reyes Mena MD 02/16/2019 11:38 A
[2019-02-16 10:31] VITALS: BP 128/70
[2019-02-16] MEDS: ONDANSETRON 4MG/2ML VIAL (J2405) IV ONE ×2 (10:41→10:53)
[2019-02-16 11:25] LABS: ALBUMIN 3.9 GM/DL (3.2-5.2); ALT/SGPT 23 U/L (12-78); BILIRUBIN,DIRECT < 0.1 MG/DL (0.0-0.2); BILIRUBIN,TOTAL 0.4 MG/DL (0.2-1.0); BLOOD UREA NITROGEN 8 MG/DL (7-18); CALCIUM LEVEL 8.7 MG/DL (8.5-10.1); CARBON DIOXIDE LEVEL 21 MEQ/L (21-32); CHLORIDE LEVEL 109 MEQ/L (98-107); CREATININE FOR GFR 0.55 MG/DL (0.55-1.30); GLOMERULAR FILTRATION RATE > 60.0 (>58); GLUCOSE, FASTING 204 MG/DL (70-100); LIPASE 371 U/L (73-393); POTASSIUM SERUM 5.2 MEQ/L (3.5-5.1); SODIUM LEVEL 139 MEQ/L (136-145); TOTAL PROTEIN 7.5 GM/DL (6.4-8.2)
== END 2019-02-16 11:03 | disposition left against medical advice (07) ==
LOC: M ED 08:59
DX: R10.9 Unspecified abdominal pain (principal); R11.2 Nausea with vomiting, unspecified; G47.33 Obstructive sleep apnea (adult) (pediatric); E11.9 Type 2 diabetes mellitus without complications; I10 Essential (primary) hypertension; Z87.442 Personal history of urinary calculi; E78.5 Hyperlipidemia, unspecified; I69.351 Hemiplegia and hemiparesis following cerebral infarction affecting right dominant side; F41.9 Anxiety disorder, unspecified; F32.9 Major depressive disorder, single episode, unspecified; Z86.711 Personal history of pulmonary embolism; Z87.19 Personal history of other diseases of the digestive system; F17.200 Nicotine dependence, unspecified, uncomplicated; Z88.0 Allergy status to penicillin; Z88.2 Allergy status to sulfonamides; Z88.8 Allergy status to other drugs, medicaments and biological substances; Z88.6 Allergy status to analgesic agent; Z88.1 Allergy status to other antibiotic agents; Z88.5 Allergy status to narcotic agent

== ENCOUNTER 2019-04-04 09:33 | Emergency (ER) | payer MEDICARE, MEDICAID ==
[~2019-04-04] VITALS: Ht 170.2 cm; Wt 89.0 kg
[2019-04-04] MEDS ORDERED: KETAMINE IV ONE (10:15)
[2019-04-04] MEDS ORDERED: PROMETHAZINE INJ 25 MG/ML VIAL (J2550) IV ONE (10:15)
[2019-04-04] MEDS ORDERED: NS 1,000 ML IV ONE (10:15)
[2019-04-04] MEDS ORDERED: NACL IV ONE (10:15)
[2019-04-04] MEDS ORDERED: DILUENT IV ONE (10:15)
[2019-04-04 10:33] LABS: HEMATOCRIT 44.2 % (36.0-47.0); MEAN CORPUSCULAR HEMOGLOBIN 32.8 pg (27.0-33.0); MEAN CORPUSCULAR HGB CONC 33.9 g/dl (32.0-36.5); MEAN CORPUSCULAR VOLUME 96.5 fl (80.0-96.0); PLATELET COUNT, AUTOMATED 221 10^3/uL (150-450); RED BLOOD COUNT 4.58 10^6/uL (4.00-5.40); WHITE BLOOD COUNT 9.8 10^3/uL (4.0-10.0)
[2019-04-04 11:02] LABS: BLOOD UREA NITROGEN 11 MG/DL (7-18); CALCIUM LEVEL 8.8 MG/DL (8.5-10.1); CARBON DIOXIDE LEVEL 25 MEQ/L (21-32); CHLORIDE LEVEL 104 MEQ/L (98-107); CREATININE FOR GFR 0.61 MG/DL (0.55-1.30); GLOMERULAR FILTRATION RATE > 60.0 (>58); GLUCOSE, FASTING 158 MG/DL (70-100); POTASSIUM SERUM 5.6 MEQ/L (3.5-5.1); SODIUM LEVEL 135 MEQ/L (136-145)
--- NOTE | 2019-04-04 11:11 | REP ---
CT ABDOMEN AND PELVIS WITHOUT CONTRAST: HISTORY: Left flank pain. COMPARISON: 02/16/2019 The patient is status post cholecystectomy. Calcification is present in the spleen. The liver, pancreas, adrenal glands and kidneys are normal in appearance. There is no nephrolithiasis. There is no mass, adenopathy or free fluid. The visualized lungs are clear. The patient is status post hysterectomy. The urinary bladder is normal in appearance. IMPRESSION: 1. The patient is status post cholecystectomy. 2. The patient is status post hysterectomy. Electronically Signed by Dangelo Hartmann MD 04/04/2019 11:15 A
[2019-04-04 12:43] VITALS: BP 136/95
== END 2019-04-04 12:44 | disposition home or self-care (01) ==
LOC: M ED 09:33 → EEVIPCON 09:33 → M ED 12:44
DX: R10.9 Unspecified abdominal pain (principal); G89.29 Other chronic pain; D18.01 Hemangioma of skin and subcutaneous tissue; E11.9 Type 2 diabetes mellitus without complications; K50.90 Crohn's disease, unspecified, without complications; R56.9 Unspecified convulsions; M54.9 Dorsalgia, unspecified; F41.9 Anxiety disorder, unspecified; F32.9 Major depressive disorder, single episode, unspecified; N80.9 Endometriosis, unspecified; I69.351 Hemiplegia and hemiparesis following cerebral infarction affecting right dominant side; Z87.442 Personal history of urinary calculi; F17.210 Nicotine dependence, cigarettes, uncomplicated; Z88.0 Allergy status to penicillin; Z88.2 Allergy status to sulfonamides; Z88.5 Allergy status to narcotic agent; Z88.1 Allergy status to other antibiotic agents; Z88.6 Allergy status to analgesic agent; Z88.8 Allergy status to other drugs, medicaments and biological substances